=== PATIENT | male | born 1990 | race Two or more races ===

== ENCOUNTER 2024-12-16 18:58 | Inpatient (IN) | payer MEDICAID, OTHER ==
[~2024-12-16] VITALS: Ht 167.6 cm; Wt 145.0 kg
[2024-12-16 19:00] VITALS: BP 108/60; PULSE 139; RESP 20; TEMP 101.3; O2SAT 94
[2024-12-16] MEDS ORDERED: ACETAMINOPHEN 325 MG TAB PO ONE (19:15)
[2024-12-16] MEDS ORDERED: LACTATED RINGER'S 1,900 ML IV ONE (19:15)
--- NOTE | 2024-12-16 19:52 | DVH ---
EXAM: XY CHEST PORTABLE CLINICAL HISTORY: fever TECHNIQUE: Single frontal view of the chest WID: COMPARISON: None FINDINGS: Lines and tubes: None Chest: The heart size and pulmonary vasculature is within normal limits. No pleural effusion, pneumothorax, or consolidation. The osseous structures are grossly intact. IMPRESSION: 1. No acute cardiopulmonary abnormality.
[2024-12-16 19:57] LABS: Hematocrit 42.7 % (41.0-53.0); Hemoglobin 14.2 g/dL (13.5-17.5); Mean Corpuscular Hemoglobin 28.3 pg (28.0-32.0); Mean Corpuscular Volume 85.4 fL (80.0-100.0); Nucleated Red Blood Cells % 0.0 %
[2024-12-16] MEDS ORDERED: CEFEPIME 1GM/50ML 50 ML IV ONE ×2 (20:00)
[2024-12-16 20:12] LABS: INR 1.05 (0.9-1.15); Partial Thromboplastin Time 28.0 SEC (24.5-34.5); Prothrombin Time 11.1 sec (9.3-11.8)
[2024-12-16 20:15] LABS: Albumin 4.3 g/dL (3.2-4.8); Anion Gap 11 (5-15); BUN/Creatinine Ratio 10.7 (10.0-20.0); Bilirubin, Total 0.5 mg/dL (0.2-1.0); Blood Urea Nitrogen 11 mg/dL (9-23); Calcium 9.3 mg/dL (8.7-10.4); Carbon Dioxide 25 mmol/L (20-31); Potassium 4.2 mmol/L (3.5-5.1); Total Protein 8.2 g/dL (5.7-8.2)
[2024-12-16 20:17] LABS: Alanine Aminotransferase 53 U/L (7-40); Alkaline Phosphatase 121 U/L (46-116); Chloride 98 mmol/L (98-107); Glucose 292 mg/dL (74-106); Sodium 134 mmol/L (136-145)
[2024-12-16 20:21] LABS: Lactic Acid w/Reflex 2.3 mmol/L (0.4-2.0)
--- NOTE | 2024-12-16 21:17 | ED.PDOC ---
History of Present Illness HPI Comments 34 year old male presents to the ED with a chief complaint of back pain s/p fall onset today (12/16/24). Patient states he is currently living in a rehab home, has been sleeping on the floor the past few days, has been experiencing intermittent back pain. Today, he was taking out the trash, slipped, fell dayna kwards, landing on his back. He is currently experiencing back pain. For the past 2 days, he has been experiencing nausea, diarrhea, fevers, headache. Upon ED arrival temperature was 101.3 F. PMHx DM. Denies vomiting, chest pain, dizziness, numbness/tingling, dysuria, hematuria, hematemesis. No other symptoms or modifying factors present at this time. Chief Complaint: Back Pain Time Seen by MD: 20:50 Reviewed Notes: Medications, Allergies Allergies: Coded Allergies: NO KNOWN ALLERGIES (Unverified , 12/16/24) Information Source: Patient Mode of Arrival: Ambulatory Severity: Moderate Timing: Hours Duration: Since onset Prehospital treatment: None Past Medical History PAST MEDICAL HISTORY: DM Surgical History: Denies all surgeries Family History Family History: Reviewed,noncontributory to illness, No family hx of Cancer, No family hx of DM, No family hx of Heart luis alberto, No family hx of HTN, No family hx ofKidney luis alberto, No family hx of Liver luis alberto, No family hx of Lung luis alberto, No family hx of Stroke Social History Smoker: Non-Smoker Alcohol: Denies ETOH Use Drugs: Denies Drug Use Lives In: Home Constitutional: reports: fever; denies: chills, diaphoresis, fatigue, malaise, sweats, weakness, others EENTM: denies: blurred vision, double vision, ear bleeding, ear discharge, ear drainage, ear pain, ear ringing, eye pain, eye redness, hearing loss, mouth pain, mouth swelling, nasal discharge, nose bleeding, nose congestion, nose pain, photophobia, tearing, throat pain, throat swelling, voice changes, others Respiratory: reports: cough; denies: hemoptysis, orthopnea, SOB at rest, shortness of breath, SOB with excertion, stridor, wheezing, others Cardiovascular: denies: chest pain, dizzy spells, diaphoresis, Dyspnea on exertion, edema, irregular heart beat, left arm pain, lightheadedness, palpitations, PND, syncope, others Gastrointestinal: reports: diarrhea, nausea; denies: abdomen distended, abdominal pain, blood streaked bowels, constipated, dysphagia, difficulty swallowing, hematemesis, melena, poor appetite, poor fluid intake, rectal bleeding, rectal pain, vomiting, others Genitourinary: denies: burning, dysuria, flank pain, frequency, hematuria, incontinence, penile discharge, penile sore, pain, testicle pain, testicle swelling, urgency, others Neurological: reports: headache; denies: dizziness, fainting, left sided numbness, left sided weakness, numbness, paresthesia, pre-existing deficit, right sided numbness, right sided weakness, seizure, speech problems, tingling, tremors, weakness, others Musculoskeletal: reports: back pain; denies: gout, joint pain, joint swelling, muscle pain, muscle stiffness, neck pain, others Integumetry: denies: bruises, change in color, change in hair/nails, dryness, laceration, lesions, lumps, rash, wounds, others Allergic/Immunocompromised: denies: Difficulty Healing, Frequent Infections, Hives, Itching, others Hematologic/Lymphatic: denies: anemia, blood clots, easy bleeding, easy bruising, swollen glands, others Endocrine: denies: excessive hunger, excessive sweating, excessive thirst, excessive urination, flushing, intolerance to cold, intolerance to heat, unexplained weight gain, unexplained weight loss, others Psychiatric: denies: anxiety, bipolar disorder, depression, hopeless, panic di sorder, schizophrenia, sleepless, suicidal, others All Other Systems: Reviewed and Negative Physical Exam General Appearance: Normal HEENT: Normal ENT Inspection, Pharynx Normal, TMs Normal Neck: Full Range of Motion, Non-Tender, Normal, Normal Inspection Respiratory: Chest Non-Tender, Lungs Clear, No Accessory Muscle Use, No Respiratory Distress, Normal Breath Sounds Cardiovascular: No Edema, No JVD, No Murmur, No Gallop, Normal Peripheral Pulses, Regular Rate/Rhythm Breast Exam: Deferred Gastrointestinal: No Organomegaly, Non Tender, No Pulsatile Mass, Normal Bowel Sounds, Soft Genitalia: Deferred Pelvic: Deferred Rectal: Deferred Extremities: No calf tenderness, Normal capillary refill, Normal inspection, Normal range of motion, Non-tender, No pedal edema Musculoskeletal : Apperance: Normal Neurologic: Alert, director graphics II-XII nml as Tested, No Motor Deficits, Normal Affect, Normal Mood, No Sensory Deficits Cerebellar Function: Normal Reflexes: Normal Skin: Dry, Normal Color, Warm Lymphatic: No Adenopathy Was a procedure done? Was a procedure done?: No Differential Dx Considerations may include: Viral syndrome, pneumonia, sepsis, ACS X-Ray, Labs, Meds, VS Vital Signs Date Time Temp Pulse Resp B/P (MAP) Pulse Ox O2 Delivery O2 Flow Rate FiO2 12/16/24 19:00 101.3 139 20 108/60 94 101.3 Lab Test 12/16/24 21:25 12/16/24 19:21 Range/Units Lactic Acid Level Pending 2.3 *H 0.4-2.0 mmol/L White Blood Count 19.0 H 4.4-10.8 10^3/uL Red Blood Count 5.00 4.5-5.90 10^6/uL Hemoglobin 14.2 13.5-17.5 g/dL Hematocrit 42.7 41.0-53.0 % Mean Corpuscular Volume 85.4 80.0-100.0 fL Mean Corpuscular Hemoglobin 28.3 28.0-32.0 pg Mean Corpuscular Hemoglobin Concent 33.2 32.0-36.0 g/dL Red Cell Distribution Width 16.0 H 11.8-14.3 % Platelet Count 252 140-450 10^3/uL Mean Platelet Volume 9.8 6.9-10.8 fL Neutrophils (%) (Auto) 92.2 H 37.0-80.0 % Lymphocytes (%) (Auto) 3.1 L 10.0-50.0 % Monocytes (%) (Auto) 4.5 0.0-12.0 % Eosinophils (%) (Auto) 0.1 0.0-7.0 % Basophils (%) (Auto) 0.1 0.0-2.0 % Neutrophils # (Auto) 17.6 H 1.6-8.6 10 ^3/uL Lymphocytes # (Auto) 0.6 0.4-5.4 10 ^3/uL Monocytes # (Auto) 0.9 0-1.3 10 ^3/uL Eosinophils # (Auto) 0 0-0.8 10 ^3/uL Basophils # (Auto) 0 0-0.2 10 ^3/uL Nucleated Red Blood Cells 0.0 % Prothrombin Time 11.1 9.3-11.8 sec Prothrombin Time INR 1.05 0.9-1.15 Activated Partial Thromboplast Time 28.0 24.5-34.5 SEC Sodium Level 134 L 136-145 mmol/L Potassium Level 4.2 3.5-5.1 mmol/L Chloride Level 98 98-107 mmol/L Carbon Dioxide Level 25 20-31 mmol/L Anion Gap 11 5-15 Blood Urea Nitrogen 11 9-23 mg/dL Creatinine 1.03 0.700-1.30 mg/dL Glomerular Filtration Rate Calc 97 >90 mL/min BUN/Creatinine Ratio 10.7 10.0-20.0 Serum Glucose 292 H 74-106 mg/dL Calcium Level 9.3 8.7-10.4 mg/dL Total Bilirubin 0.5 0.2-1.0 mg/dL Aspartate Amino Transferase (AST) 54 H 13-40 U/L Alanine Aminotransferase (ALT) 53 H 7-40 U/L Alkaline Phosphatase 121 H 46-116 U/L Total Protein 8.2 5.7-8.2 g/dL Albumin 4.3 3.2-4.8 g/dL [place] [id number] Ph: [phone] DIAGNOSTIC IMAGING Diagnostic Imaging Report : [id number] Signed PATIENT: NOELLE BARRON JRCCT: [id number] UNIT: [id number] : 1990 LOC: ER ROOM / BED: / AGE / SEX: 34 / M ADM STATUS: REG ER SERVICE 10 ORDERING PHYSICIAN: MEGHANN BROWN MD PROCEDURE(s): CXRP - CHEST PORTABLE REASON: fever ORDER NUMBER(s): [id number], ACCESSION NUMBER(s): [id number] EXAM: XY CHEST PORTABLE CLINICAL HISTORY: fever TECHNIQUE: Single frontal view of the chest WID: COMPARISON: None FINDINGS: Lines and tubes: None Chest: The heart size and pulmonary vasculature is within normal limits. No pleural effusion, pneumothorax, or consolidation. The osseous structures are grossly intact. IMPRESSION: 1. No acute cardiopulmonary abnormality. ATED BY: KATHLEEN SALDANA MD DICTATED DATE/TIME: 12/16/241948 SIGNED BY: KATHLEEN SALDANA MD SIGNED DATE/TIME: 12/16/241948 CC: Time of 1ST Reevaluation: 21:20 Reevaluation 1ST: Unchanged Patient Education/Counseling: Diagnosis, Treatment, Prognosis Family Education/Counseling: No Family Present SEPSIS Sepsis Screen Date sepsis recognized/suspect: Dec 16, 2024 Time Sepsis recognized/suspect: 1905 Recent Procedure: No On Antibiotic Therapy: No Respiratory Rate >20: No Heart Rate >90: Yes Temp<36 C (96.8 F) or >38.3 C: Yes SBP <90 or MAP <65 mmHG: No New Acute Mental Status Change: No Is the patient on CPAP, BIPAP,: No Physician Orders Urinalysis (12/16/24 19:11) Chest Portable (12/16/24 19:11) Accucheck (12/16/24 19:11) Blood Culture (12/16/24 19:11) Notify Md If Map <65 Or Bp<90 (12/16/24 19:11) If Map<65 Start Vasopressor (12/16/24 19:11) Sepsis Reassesment After Fluid (12/16/24 20:11) Cefepime 1gm/ 50ml (Maxipime 1gm/50ml) (12/17/24 06:00) Vital Signs Date Time Temp Pulse Resp B/P (MAP) Pulse Ox O2 Delivery O2 Flow Rate FiO2 12/16/24 19:00 101.3 139 20 108/60 94 101.3 Laboratory Tests Test 12/16/24 19:21 12/16/24 21:25 Lactic Acid Level 2.3 mmol/L (0.4-2.0) *H Pending White Blood Count 19.0 10^3/uL (4.4-10.8) H Departure 1 Departure Time of Disposition: 22:01 (Patient presents with symptoms concerning for sepsis. Patient we will empirically cover patient with antibiotics and fluids and admit patient for further workup and expert consultation) Impression: Primary Impression: Sepsis Qualified Codes: A41.9 - Sepsis, unspecified organism Additional Impression: Generalized weakness Disposition: ADMITTED INPATIENT Admit to: Med Surg Condition: Serious Critical Care Note Critical Care Time?: Yes Critical care comment: Sepsis Authorized and Performed by: Meghann Brown MD Total critical care time: Approximately 38 minutes Due to a high probability of clinically significant, life threatening deterioration, the patient required my highest level of preparedness to intervene emergently and I personally spent this critical care time directly and personally managing the patient. This critical care time included obtaining a history; examining the patient; pulse oximetry; ordering and review of studies; arranging urgent treatment with development of a management plan; evaluation of patient's response to treatment; frequent reassessment; and, discussions with other providers. This critical care time was performed to assess and manage the high probability of imminent, life-threatening deterioration that could result in multi-organ failure. It was exclusive of separately billable procedures and treating other patients and teaching time. Please see my other sections and the rest of the note for further information on patient assessment and treatment. Stability Stability form required: No I personally scribed for MEGHANN BROWN MD ([email or web address]) on 12/16/24 at 21:17. Electronically submitted by Domenica Bynum ([email or web address]). MEGHANN BROWN MD Dec 16, 2024 21:17
[2024-12-17] MEDS ORDERED: DOCUSATE SOD 100 MG CAP PO PRN
[2024-12-17] MEDS ORDERED: ONDANSETRON HCL 4 MG/2 ML VIAL IV PRN
[2024-12-17] MEDS ORDERED: ACETAMINOPHEN 325 MG TAB PO PRN
[2024-12-17] MEDS ORDERED: HYDROcodone-ACET 5/325MG TAB PO PRN
[2024-12-17] MEDS ORDERED: LACTATED RINGER'S 2,000 ML IV ONE (00:15)
[2024-12-17] MEDS ORDERED: VANCOMYCIN PER PHARMACY 0 MG IV SCH (00:15)
[2024-12-17] MEDS ORDERED: VANCOMYCIN 1GM/250ML KIT 250 ML IV SCH (00:30)
[2024-12-17] MEDS ORDERED: LACTULOSE 20Gm/30ML SOLN PO SCH (00:45)
[2024-12-17] MEDS ORDERED: CEFEPIME 1GM/50ML 50 ML IV SCH (06:00)
--- NOTE | 2024-12-17 09:41 | DVHHPRES ---
History of Present Illness Resident Creating Document: YOMI SOLIS RESIDENT History of Present Illness 34-year-old male with past medical history of type 2 diabetes mellitus, essential hypertension presented with complaints of headache, abdominal pain and constipation since 1 week. Labs showed neutrophilic leukocytosis, lactic acidosis and transaminitis. PSHx: Patient denies Family history: Hypertension in mother Social history: Admits to alcohol , Crystal and marijuana use , 3 pack-year smoking history Home medication: Jardiance, losartan Allergic history: Patient denies Review of Systems Review of Systems General: patient denies fever, fatigue, weaknes, sweating, any recent changes in appetite and weight HEENT: No headaches, visiual changes, hearing loss, tinnitus, nasal congestion a nd discharge, and sore throat. Cardiovascular: Denies chest pain, palpitations, dyspnea on exertion, orthopnea, or claudication. Respiratory: No cough, and wheezing. Gastrointestinal: Complains of constipation and abdominal pain Genitourinary: No dysuria, hematuria, discharge, frequency, urgency, nocturia, incontinence, and urinary retention. Endocrine: No heat or cold intolerance, polydipsia, polyuria, and polyphagia. Neurological: No dizziness, extremity weakness and numbness, tremors, gait disturbance, seizures, and memory impairment. Psychiatric: Denies depression, anxiety,or insomnia. Musculoskeletal: Complains of back pain Skin: No rashes, itching, skin lesion, changes in hair, nail, skin texture and breast. Hematologic/Lymphatic: Denies easy bruising, bleeding tendencies, or lymph node enlargement. Allergies: Coded Allergies: NO KNOWN ALLERGIES (Unverified , 12/16/24) Medications Current Medications Medications Dose Ordered Sig/Myke Route Start Time Stop Time Status Last Admin Dose Admin Cefepime HCl 50 ml @ 12.5 mls/hr Q8HR IV 12/17/24 06:00 Acetaminophen/ Hydrocodone Bitart 1 tab Q4HP PRN PO 12/17/24 00:00 Ondansetron HCl 4 mg Q4HP PRN IV 12/17/24 00:00 Vancomycin HCl 0 ml @ 0 mls/hr UD IV 12/17/24 00:15 Lactulose 30 ml DAILY PO 12/17/24 00:45 Exam Vital Signs Vital Signs Date Time Temp Pulse Resp B/P (MAP) Pulse Ox O2 Delivery O2 Flow Rate FiO2 12/16/24 19:00 101.3 139 20 108/60 94 101.3 Exam General Appearance: Alert, Oriented X3, Cooperative, No acute distress HEENT: Atraumatic, PERRLA, EOMI, Mucous membrane moist/pink Respiratory: Clear to auscultation, Normal air movement Cardiovascular: Regular rate, Normal S1, Normal S2, No murmurs, no chest wall tenderness Abdominal: Diffuse abdominal tenderness, tenderness in the lumbar spine Extremities: No clubbing, No cyanosis, No edema, Normal pulses, No tenderness/swelling Skin: No rashes, No breakdown, No significant lesion Neuro: Normal gait, Normal speech, Strength at 5/5 X4 ext, Normal tone, Sensation intact, Cranial nerves 3-12 NL, Reflexes 2+ Psych/Mental Status: Mental status NL, Mood NL Labs/Xrays Labs Test 12/16/24 21:25 12/16/24 19:21 Range/Units Lactic Acid Level 2.1 *H 0.4-2.0 mmol/L White Blood Count 19.0 H 4.4-10.8 10^3/uL Red Blood Count 5.00 4.5-5.90 10^6/uL Hemoglobin 14.2 13.5-17.5 g/dL Hematocrit 42.7 41.0-53.0 % Mean Corpuscular Volume 85.4 80.0-100.0 fL Mean Corpuscular Hemoglobin 28.3 28.0-32.0 pg Mean Corpuscular Hemoglobin Concent 33.2 32.0-36.0 g/dL Red Cell Distribution Width 16.0 H 11.8-14.3 % Platelet Count 252 140-450 10^3/uL Mean Platelet Volume 9.8 6.9-10.8 fL Neutrophils (%) (Auto) 92.2 H 37.0-80.0 % Lymphocytes (%) (Auto) 3.1 L 10.0-50.0 % Monocytes (%) (Auto) 4.5 0.0-12.0 % Eosinophils (%) (Auto) 0.1 0.0-7.0 % Basophils (%) (Auto) 0.1 0.0-2.0 % Neutrophils # (Auto) 17.6 H 1.6-8.6 10 ^3/uL Lymphocytes # (Auto) 0.6 0.4-5.4 10 ^3/uL Monocytes # (Auto) 0.9 0-1.3 10 ^3/uL Eosinophils # (Auto) 0 0-0.8 10 ^3/uL Basophils # (Auto) 0 0-0.2 10 ^3/uL Nucleated Red Blood Cells 0.0 % Prothrombin Time 11.1 9.3-11.8 sec Prothrombin Time INR 1.05 0.9-1.15 Activated Partial Thromboplast Time 28.0 24.5-34.5 SEC Sodium Level 134 L 136-145 mmol/L Potassium Level 4.2 3.5-5.1 mmol/L Chloride Level 98 98-107 mmol/L Carbon Dioxide Level 25 20-31 mmol/L Anion Gap 11 5-15 Blood Urea Nitrogen 11 9-23 mg/dL Creatinine 1.03 0.700-1.30 mg/dL Glomerular Filtration Rate Calc 97 >90 mL/min BUN/Creatinine Ratio 10.7 10.0-20.0 Serum Glucose 292 H 74-106 mg/dL Calcium Level 9.3 8.7-10.4 mg/dL Total Bilirubin 0.5 0.2-1.0 mg/dL Aspartate Amino Transferase (AST) 54 H 13-40 U/L Alanine Aminotransferase (ALT) 53 H 7-40 U/L Alkaline Phosphatase 121 H 46-116 U/L Total Protein 8.2 5.7-8.2 g/dL Albumin 4.3 3.2-4.8 g/dL SEPSIS Sepsis Screen Date sepsis recognized/suspect: Dec 16, 2024 Time Sepsis recognized/suspect: 1905 Recent Procedure: No On Antibiotic Therapy: No Respiratory Rate >20: No Heart Rate >90: Yes Temp<36 C (96.8 F) or >38.3 C: Yes SBP <90 or MAP <65 mmHG: No New Acute Mental Status Change: No Is the patient on CPAP, BIPAP,: No Physician Orders Chlamydia/Gc Amplification (12/17/24 04:00) Urinalysis (12/17/24 04:00) Drug Screen (12/17/24 04:25) Covid19 Antigen Lalita (12/17/24 ) Rapid Influenza A&B (12/17/24 04:25) Cooling Measure (12/17/24 ) Implement Cooling Measures (12/17/24 04:31) Cooling [place] (12/17/24 04:31) Assessment/Plan Assessment/Plan #Severe sepsis -identify source, rule out STI, UTI, respiratory and abdominal source of infection #Lactic acidosis #Mild transaminitis-avoid hepatotoxic, hepatitis panel, CMP repeat #Essential hypertension, continue home medications #Type 2 diabetes mellitus-HBA1c, continue home medications #History of polysubstance abuse-follow urine drug screen #Grade 3 obesity Barriers to discharge: Medical management in progress. Case discussed with Dr. Heck Code status: Full code. Complex patient care discussion needed total 31 minutes Plan discussed with: Patient My Orders Orders - YOMI SOLIS RESIDENT Procedure Category Date Status Time Admit ADMIT 12/16/24 Transmitted 23:54 Allergies JANEL 12/16/24 In Process 23:54 Code Status CODE 12/16/24 Transmitted 23:54 Hydrocodone-Acet PHA 12/17/24 In Process 5/325mg Tab ([place] 00:00 Ondansetron Hcl PHA 12/17/24 In Process (Zofran) 00:00 Condition: Fair JANEL 12/16/24 In Process 23:54 Urine Bacterial ANKUR 12/17/24 Logged Culture 00:06 Respiratory Culture ANKUR 12/17/24 Uncollected W/ Gs 00:06 Vancomycin Per PHA 12/17/24 In Process Pharmacy 00:15 Vancomycin Per JANEL 12/17/24 In Process Pharmacy Protoc 00:30 Lactulose Oral PHA 12/17/24 In Process 00:45 Date of Service: Dec 17, 2024 Billing Provider: CHARAN HECK MD Common Visit Codes: 87467-[id number] INP/OBS CARE (HIGH) Secondary Visit Codes: 01867-[id number] CARE PLAN 30 MINUTES YOMI SOLIS Dec 17, 2024 09:41
--- NOTE | 2024-12-17 09:49 | DVHDSRES ---
Discharge Summary Date of Admission Resident Creating Document: YOMI SOLIS RESIDENT Dec 16, 2024 at 23:54 Date of Discharge: Dec 17, 2024 Admitting Diagnosis Severe sepsis Labs/Diagnostic Data: Laboratory Results Test 12/16/24 21:25 12/16/24 19:21 Lactic Acid Level 2.1 mmol/L (0.4-2.0) White Blood Count 19.0 10^3/uL (4.4-10.8) Red Blood Count 5.00 10^6/uL (4.5-5.90) Hemoglobin 14.2 g/dL (13.5-17.5) Hematocrit 42.7 % (41.0-53.0) Mean Corpuscular Volume 85.4 fL (80.0-100.0) Mean Corpuscular Hemoglobin 28.3 pg (28.0-32.0) Mean Corpuscular Hemoglobin Concent 33.2 g/dL (32.0-36.0) Red Cell Distribution Width 16.0 % (11.8-14.3) Platelet Count 252 10^3/uL (140-450) Mean Platelet Volume 9.8 fL (6.9-10.8) Neutrophils (%) (Auto) 92.2 % (37.0-80.0) Lymphocytes (%) (Auto) 3.1 % (10.0-50.0) Monocytes (%) (Auto) 4.5 % (0.0-12.0) Eosinophils (%) (Auto) 0.1 % (0.0-7.0) Basophils (%) (Auto) 0.1 % (0.0-2.0) Neutrophils # (Auto) 17.6 10 ^3/uL (1.6-8.6) Lymphocytes # (Auto) 0.6 10 ^3/uL (0.4-5.4) Monocytes # (Auto) 0.9 10 ^3/uL (0-1.3) Eosinophils # (Auto) 0 10 ^3/uL (0-0.8) Basophils # (Auto) 0 10 ^3/uL (0-0.2) Nucleated Red Blood Cells 0.0 % Prothrombin Time 11.1 sec (9.3-11.8) Prothrombin Time INR 1.05 (0.9-1.15) Activated Partial Thromboplast Time 28.0 SEC (24.5-34.5) Sodium Level 134 mmol/L (136-145) Potassium Level 4.2 mmol/L (3.5-5.1) Chloride Level 98 mmol/L (98-107) Carbon Dioxide Level 25 mmol/L (20-31) Anion Gap 11 (5-15) Blood Urea Nitrogen 11 mg/dL (9-23) Creatinine 1.03 mg/dL (0.700-1.30) Glomerular Filtration Rate Calc 97 mL/min (>90) BUN/Creatinine Ratio 10.7 (10.0-20.0) Serum Glucose 292 mg/dL (74-106) Calcium Level 9.3 mg/dL (8.7-10.4) Total Bilirubin 0.5 mg/dL (0.2-1.0) Aspartate Amino Transferase (AST) 54 U/L (13-40) Alanine Aminotransferase (ALT) 53 U/L (7-40) Alkaline Phosphatase 121 U/L (46-116) Total Protein 8.2 g/dL (5.7-8.2) Albumin 4.3 g/dL (3.2-4.8) Other Laboratory Tests 12/16/24 19:21 Brief Hx & Hospital Course: 34-year-old male with past medical history of type 2 diabetes mellitus, essential hypertension presented with complaints of headache, abdominal pain and constipation since 1 week. Labs showed neutrophilic leukocytosis, lactic acidosis and transaminitis. Patient was diagnosed with severe sepsis. He was admitted to the hospital and initial management started in the ER. Patient eloped and was nowhere to be found. Condition at Discharge: Undetermined Final Diagnosis/Problems List #Severe sepsis -identify source, rule out STI, UTI, respiratory and abdominal source of infection #Lactic acidosis #Mild transaminitis-avoid hepatotoxic, hepatitis panel, CMP repeat #Essential hypertension, continue home medications #Type 2 diabetes mellitus-HBA1c, continue home medications #History of polysubstance abuse-follow urine drug screen #Grade 3 obesity Discharge Disposition: Eloped Discharge Statement: "Patient was advised to return to the ER or call 911 if any headaches, dizziness, shortness of breath, chest pain, abdominal pain, bleeding, fevers, or worsening of medical condition. Patient was counseled about treatment plan, medications, possible side effects, patientverbalized understanding. All questions were answered to the best of my ability. This discharge took greater then 30 minutes in planning, reviewing documentation, counseling the patient, and discussing with other team members." ASSESSMENT ASSESSMENT Assessment YOMI SOLIS RESIDENT Dec 17, 2024 09:49
[2024-12-17] MEDS ORDERED: EMPAGLIFLOZIN 10 MG TAB PO SCH (10:00)
[2024-12-17] MEDS ORDERED: LOSARTAN POTASSIUM 50 MG TAB PO SCH (10:00)
== END 2024-12-17 03:02 | disposition left against medical advice (07) | DRG 720 ==
LOC: ER 18:58 → OVERFLOW 23:54
PROVIDERS: ADMIT Nurse Practitioner Acute Care; ATTEND Student in an Organized Health Care Education/Training Program
DX: A41.9 Sepsis, unspecified organism (principal); E87.20 Acidosis, unspecified; Z68.43 Body mass index [BMI] 50.0-59.9, adult; E66.9 Obesity, unspecified; I10 Essential (primary) hypertension; E11.9 Type 2 diabetes mellitus without complications; K59.00 Constipation, unspecified; N39.0 Urinary tract infection, site not specified; R65.20 Severe sepsis without septic shock; R74.01 Elevation of levels of liver transaminase levels; F12.90 Cannabis use, unspecified, uncomplicated; Z82.49 Family history of ischemic heart disease and other diseases of the circulatory system; Z88.8 Allergy status to other drugs, medicaments and biological substances; Z86.59 Personal history of other mental and behavioral disorders; Z87.891 Personal history of nicotine dependence
CPT/HCPCS: 36415; 71045; 80053; 83605; 85025; 85610; 85730; 87040; 87077; 87186; 99291; G0378

== ENCOUNTER 2024-12-17 14:07 | Inpatient (IN) | payer MEDICAID ==
[~2024-12-17] VITALS: Ht 167.6 cm; Wt 168.7 kg
--- NOTE | 2024-12-17 18:01 | ED.PDOC ---
History of Present Illness HPI Comments 34-year-old male who presents to the ED for chief complaint of abnormal labs. Patient was admitted here yesterday after presenting with a headache, abdominal pain and constipation. He was diagnosed with sepsis, however eloped after hospital admission. Patient states he received call earlier today from [facility] staff telling him to come to the ED to be admitted for positive blood cultures. Patient had blood cultures that were positive for gram-positive cocci in chains and states he has to come back to the ED to receive IV antibiotics. Patient in the ED states he has been having abdominal pain, diarrhea, headache and low back pain. Patient also notes he fell yesterday, then noticed his left leg was red and swollen today, possibly due to an injury from the fall. Patient in the ED has noted heart rate of 122 and O2 saturation 92% on room air though has stable vitals and good temperature 99.0 F respiratory rate of 18 and blood pressure 136/75. Patient otherwise denies any other symptoms at this time. Chief Complaint: Abnormal LAB's Time Seen by MD: 18:31 Reviewed Notes: Medications, Allergies Allergies: Coded Allergies: NO KNOWN ALLERGIES (Unverified , 12/16/24) Information Source: Patient Mode of Arrival: Ambulatory Past Medical History PAST MEDICAL HISTORY: DM, HTN Surgical History: Denies all surgeries Family History Family History: Reviewed,noncontributory to illness, No family hx of Cancer, No family hx of DM, No family hx of Heart luis alberto, No family hx of HTN, No family hx ofKidney luis alberto, No family hx of Liver luis alberto, No family hx of Lung luis alberto, No family hx of Stroke Social History Smoker: Non-Smoker Alcohol: Denies ETOH Use Drugs: Denies Drug Use Lives In: Home All Other Systems: Reviewed and Negative (See HPI) Physical Exam General Appearance: Mild Distress, Obese HEENT: Other (Pupils and face symmetric. Moist mucous membranes.) Neck: Full Range of Motion, Non-Tender, Normal Inspection, Supple Respiratory: Decreased Breath Sounds, No Accessory Muscle Use, No Respiratory Distress Cardiovascular: No JVD, Regular Rate/Rhythm Breast Exam: Deferred Gastrointestinal: LLQ, RLQ, Soft, Tenderness Genitalia: Deferred Pelvic: Deferred Rectal: Deferred Extremities: Normal range of motion, No pedal edema, Other (Left leg erythema, mild edema and soft tissue tenderness.) Neurologic: Alert (Oriented x4), Normal Affect, Normal Mood, Other (Ambulatory) Cerebellar Function: NOT DONE Reflexes: NOT DONE Skin: Dry, Normal Color, Warm Lymphatic: NOT DONE Was a procedure done? Was a procedure done?: No Differential Dx Considerations may include: Sepsis, hyperglycemia, DKA, cellulitis, DVT, among X-Ray, Labs, Meds, VS Vital Signs Date Time Temp Pulse Resp B/P (MAP) Pulse Ox O2 Delivery O2 Flow Rate FiO2 12/17/24 22:06 98.4 109 16 122/89 (100) 97 98.4 12/17/24 18:31 100 18 120/68 (85) 93 12/17/24 14:17 99.0 122 18 136/75 92 99.0 Lab Test 12/17/24 18:38 Range/Units White Blood Count 16.4 H 4.4-10.8 10^3/uL Red Blood Count 4.88 4.5-5.90 10^6/uL Hemoglobin 14.0 13.5-17.5 g/dL Hematocrit 42.4 41.0-53.0 % Mean Corpuscular Volume 86.9 80.0-100.0 fL Mean Corpuscular Hemoglobin 28.6 28.0-32.0 pg Mean Corpuscular Hemoglobin Concent 33.0 32.0-36.0 g/dL Red Cell Distribution Width 16.1 H 11.8-14.3 % Platelet Count 208 140-450 10^3/uL Mean Platelet Volume 9.5 6.9-10.8 fL Neutrophils (%) (Auto) 90.9 H 37.0-80.0 % Lymphocytes (%) (Auto) 5.3 L 10.0-50.0 % Monocytes (%) (Auto) 3.6 0.0-12.0 % Eosinophils (%) (Auto) 0.0 0.0-7.0 % Basophils (%) (Auto) 0.2 0.0-2.0 % Neutrophils # (Auto) 14.9 H 1.6-8.6 10 ^3/uL Lymphocytes # (Auto) 0.9 0.4-5.4 10 ^3/uL Monocytes # (Auto) 0.6 0-1.3 10 ^3/uL Eosinophils # (Auto) 0 0-0.8 10 ^3/uL Basophils # (Auto) 0 0-0.2 10 ^3/uL Nucleated Red Blood Cells 0.0 % Prothrombin Time 12.5 H 9.3-11.8 sec Prothrombin Time INR 1.20 H 0.9-1.15 Activated Partial Thromboplast Time 30.9 24.5-34.5 SEC Sodium Level 134 L 136-145 mmol/L Potassium Level 4.0 3.5-5.1 mmol/L Chloride Level 97 L 98-107 mmol/L Carbon Dioxide Level 27 20-31 mmol/L Anion Gap 10 5-15 Blood Urea Nitrogen 15 9-23 mg/dL Creatinine 1.10 0.700-1.30 mg/dL Glomerular Filtration Rate Calc 90 >90 mL/min BUN/Creatinine Ratio 13.6 10.0-20.0 Serum Glucose 222 H 74-106 mg/dL Lactic Acid Level 1.6 0.4-2.0 mmol/L Calcium Level 8.6 L 8.7-10.4 mg/dL Total Bilirubin 0.9 0.2-1.0 mg/dL Aspartate Amino Transferase (AST) 35 13-40 U/L Alanine Aminotransferase (ALT) 43 H 7-40 U/L Alkaline Phosphatase 96 46-116 U/L Total Protein 7.4 5.7-8.2 g/dL Albumin 4.0 3.2-4.8 g/dL [place] [id number] Ph: [phone] DIAGNOSTIC IMAGING Diagnostic Imaging Report : [id number] Signed PATIENT: NOELLE BARRON JRCCT: [id number] UNIT: [id number] : 1990 LOC: ER ROOM / BED: / AGE / SEX: 34 / M ADM STATUS: REG ER SERVICE [id number] ORDERING PHYSICIAN: JIGAR ACOSTA MD PROCEDURE(s): LLDVT - LT Lower DVT REASON: edema,erythema ORDER NUMBER(s): [id number], ACCESSION NUMBER(s): [id number] Bilateral lower extremity venous duplex Clinical History: edema,erythema Comparison: None Technique: Duplex Doppler evaluation of the deep venous systems of both lower extremities from the common femoral veins to the popliteal veins including color Doppler and spectral/pulsed waveform analysis was performed. Findings: LEFT SIDE: The common femoral vein demonstrates appropriate compressibility and waveform variability. There is compressibility/patency of the great saphenous vein at the proximal thigh. The femoral vein demonstrates appropriate compressibility and waveform variability. The deep femoral vein demonstrates appropriate compressibility and waveform variability. The popliteal vein demonstrates appropriate compressibility and waveform variability. There is normal compressibility at the tibioperoneal trunk. Impression: 1. No left femoropopliteal venous thrombosis. 2. 4.5 cm lymph node in the left inguinal area. ATED BY: ZITA CURRY Jr., DO DICTATED DATE/TIME: 12/17/241937 SIGNED BY: ZITA CURRY Jr., SIGNED DATE/TIME: 12/17/241937 CC: X-Ray, Labs, Meds, VS Comment 34-year-old male with a history of hypertension and diabetes who eloped after hospital admission yesterday for sepsis, returns today for evaluation after being notified of positive blood cultures and with persistent symptoms and new onset of left leg redness and swelling. Vitals remarkable for heart rate 122, oxygen saturation 92% on room air Exam remarkable for tachycardia, lower abdominal tenderness, left leg redness and swelling Rhythm strip independently interpreted by me: Sinus tach, rate 122, no ectopy. Lower extremity ultrasound negative for DVT CBC remarkable for WBC 16.4, metabolic panel remarkable for sodium 134, chloride 97, glucose 222, lactate normal, UA pending Patient treated with the following in the ED: 2 L LR IV bolus, morphine 4 mg IV, Zofran 4 mg IV, cefepime 2 g IV On re-evaluation, pain has improved. Vitals were stable. Plan is to admit the patient for treatment of sepsis. Time of 1ST Reevaluation: 21:30 Reevaluation 1ST: Improved Patient Education/Counseling: Diagnosis, Treatment Family Education/Counseling: No Family Present SEPSIS Sepsis Screen Date sepsis recognized/suspect: Dec 17, 2024 Time Sepsis recognized/suspect: 9 Recent Procedure: No On Antibiotic Therapy: No Respiratory Rate >20: No Heart Rate >90: No Temp<36 C (96.8 F) or >38.3 C: No SBP <90 or MAP <65 mmHG: No New Acute Mental Status Change: No Is the patient on CPAP, BIPAP,: No Physician Orders Urinalysis (12/17/24 18:24) Accucheck (12/17/24 18:24) Blood Culture (12/17/24 18:24) Cefepime 1gm/50ml (Maxipime 1gm/50ml) (12/17/24 22:00) Notify Md If Map <65 Or Bp<90 (12/17/24 18:24) If Map<65 Start Vasopressor (12/17/24 18:24) Sepsis Reassesment After Fluid (12/17/24 19:24) Lt Lower Dvt (12/17/24 18:24) Admit (12/17/24 22:06) Allergies (12/17/24 22:06) Code Status (12/17/24 22:) 2 Gm Sodium Diet (12/18/24 Breakfast) Ondansetron Hcl (Zofran) (12/17/24 22:15) Docusate Sodium Capsule (Colace Capsule) (12/17/24 22:15) Complete Blood Count (12/18/24 04:00) Comprehensive Metabolic Panel (12/18/24 04:00) Condition: Serious (12/17/24 22:06) Bedrest With Bathroom Privileg (12/17/24 22:06) Morphine Sulfate Injection (12/17/24 22:15) Stat Ekg For Chest Pain (12/17/24 22:06) Notify Md Of Changes From Base (12/17/24 22:06) Flame Annealing Machine Setter For 24 Hours (12/17/24 22:06) Emergency Dysrhythmia Protocol (12/17/24 22:06) Rhythm Strips Once Every Shift (12/17/24 22:06) Vital Signs Date Time Temp Pulse Resp B/P (MAP) Pulse Ox O2 Delivery O2 Flow Rate FiO2 12/17/24 22:06 98.4 109 16 122/89 (100) 97 98.4 12/17/24 18:31 100 18 120/68 (85) 93 12/17/24 14:17 99.0 122 18 136/75 92 99.0 Laboratory Tests Test 12/17/24 18:38 Lactic Acid Level 1.6 mmol/L (0.4-2.0) White Blood Count 16.4 10^3/uL (4.4-10.8) H Reassessment Post Fluid SEPSIS FOCUS EXAM(REASSESSMENT Sepsis reassessment focused exam completed. Date: 12/17/24 Time 19:04 Departure 1 Departure Time of Disposition: 19:04 Impression: Primary Impression: Sepsis Additional Impressions: Left leg cellulitis Abdominal pain Diarrhea Disposition: 09 ADMITTED INPATIENT Admit to: Tele Condition: Guarded Critical Care Note Critical Care Time?: Yes (35 min-critical care time only) Critical care comment: Critical care time including multiple bedside re-evaluations, review of lab and imaging studies, and discussion of the case with the admitting provider. Patient is high risk for hemodynamic and/or metabolic decompensation. Stability Stability form required: No Heart Score Heart Score: Heart Score Response (Comments) Value History N/A 0 EKG N/A 0 Age N/A 0 Risk Factors N/A 0 Troponin N/A 0 Total 0 I personally scribed for JIGAR ACOSTA MD ([email or web address]) on 12/17/24 at 18:01. Electronically submitted by Melissa Pacheco ([email or web address]). I personally scribed for JIGAR ACOSTA MD (BACILIO) on 12/17/24 at 18:33. Electronically submitted by Melissa Pacheco ([email or web address]). I personally scribed for JIGAR ACOSTA MD (BACILIO) on 12/17/24 at 20:39. Electronically submitted by Melissa PAN). JIGAR ACOSTA MD Dec 17, 2024 18:01
[2024-12-17 19:01] LABS: Hematocrit 42.4 % (41.0-53.0); Hemoglobin 14.0 g/dL (13.5-17.5); Mean Corpuscular Hemoglobin 28.6 pg (28.0-32.0); Mean Corpuscular Volume 86.9 fL (80.0-100.0); Nucleated Red Blood Cells % 0.0 %
[2024-12-17 19:16] LABS: INR 1.2 (0.9-1.15); Partial Thromboplastin Time 30.9 SEC (24.5-34.5); Prothrombin Time 12.5 sec (9.3-11.8)
[2024-12-17 19:17] LABS: Albumin 4.0 g/dL (3.2-4.8); Alkaline Phosphatase 96 U/L (46-116); Anion Gap 10 (5-15); BUN/Creatinine Ratio 13.6 (10.0-20.0); Blood Urea Nitrogen 15 mg/dL (9-23); Carbon Dioxide 27 mmol/L (20-31); Potassium 4.0 mmol/L (3.5-5.1); Total Protein 7.4 g/dL (5.7-8.2)
[2024-12-17 19:18] LABS: Bilirubin, Total 0.9 mg/dL (0.2-1.0)
[2024-12-17 19:23] LABS: Alanine Aminotransferase 43 U/L (7-40); Calcium 8.6 mg/dL (8.7-10.4); Chloride 97 mmol/L (98-107); Glucose 222 mg/dL (74-106); Sodium 134 mmol/L (136-145)
--- NOTE | 2024-12-17 19:41 | DVH ---
Bilateral lower extremity venous duplex Clinical History: edema,erythema Comparison: None Technique: Duplex Doppler evaluation of the deep venous systems of both lower extremities from the common femora l veins to the popliteal veins including color Doppler and spectral/pulsed waveform analysis was perf ormed. Findings: LEFT SIDE: The common femoral vein demonstrates appropriate compressibility and waveform variability. There is compressibility/patency of the great saphenous vein at the proximal thigh. The femoral vein demonstrates appropriate compressibility and waveform variability. The deep femoral vein demonstrates appropriate compressibility and waveform variability. The popliteal vein demonstrates appropriate compressibility and waveform variability. There is normal compressibility at the tibioperoneal trunk. Impression: 1. No left femoropopliteal venous thrombosis. 2. 4.5 cm lymph node in the left inguinal area.
[2024-12-17] MEDS ORDERED: ONDANSETRON HCL 4 MG/2 ML VIAL IV PRN (22:15)
[2024-12-17] MEDS ORDERED: DOCUSATE SOD 100 MG CAP PO PRN (22:15)
[2024-12-17] MEDS: ONDANSETRON HCL 4 MG/2 ML VIAL IV ONE (22:28)
[2024-12-17] MEDS: MORPHINE SULFATE 4 MG/ML SYR/VIAL IV ONE (22:28)
[2024-12-18] VITALS (9 sets, daily range): BP systolic 102–118; BP diastolic 36–69; PULSE 95–113; RESP 18–20; TEMP 97.7–99.6; O2SAT 92–96
[2024-12-18] MEDS ORDERED: VANCOMYCIN PER PHARMACY 0 MG IV SCH (00:15)
[2024-12-18] MEDS: VANCOMYCIN 1GM/250ML KIT 250 ML IV SCH ×2 (00:30→05:58)
[2024-12-18] MEDS: CEFEPIME 1GM/50ML 50 ML IV SCH ×2 (03:25→12:13)
[2024-12-18] MEDS: LACTATED RINGER'S 1,900 ML IV ONE (03:26)
[2024-12-18 03:59] LABS: Hematocrit 42.9 % (41.0-53.0); Hemoglobin 14.2 g/dL (13.5-17.5); Mean Corpuscular Hemoglobin 28.7 pg (28.0-32.0); Mean Corpuscular Volume 86.6 fL (80.0-100.0); Nucleated Red Blood Cells % 0.0 %
[2024-12-18 04:26] LABS: Alanine Aminotransferase 36 U/L (7-40); Albumin 4.3 g/dL (3.2-4.8); Alkaline Phosphatase 101 U/L (46-116); Anion Gap 8 (5-15); BUN/Creatinine Ratio 11.9 (10.0-20.0); Bilirubin, Total 0.8 mg/dL (0.2-1.0); Blood Urea Nitrogen 12 mg/dL (9-23); Calcium 9.1 mg/dL (8.7-10.4); Carbon Dioxide 27 mmol/L (20-31); Potassium 3.6 mmol/L (3.5-5.1)
[2024-12-18 04:29] LABS: Chloride 97 mmol/L (98-107); Glucose 223 mg/dL (74-106); Sodium 132 mmol/L (136-145); Total Protein 8.3 g/dL (5.7-8.2)
[2024-12-18 04:51] LABS: COVID19 ANTIGEN SOFIA FIA NEGATIVE (NEGATIVE)
--- NOTE | 2024-12-18 05:20 | DVHHPRES ---
History of Present Illness Resident Creating Document: JARRELL FRANCE RESIDENT History of Present Illness Campbell Hussein JR is a 34-year-old male with past medical history of diabetes, hypertension who presented to the ED with chief complaint of left leg pain, abdominal pain. Patient was admitted in [facility] yesterday after presenting with a headache, abdominal pain and constipation. Patient was diagnosed with sepsis however he eloped after hospital admission. Patient today received a call from [facility] stating that his blood cultures were positive and that he had to come to the ED. Patient had blood culture positive with Gram-positive cocci in chains. Patient today complained of 2 episodes of watery diarrhea, heartburn, abdominal pain which is diffuse and dull in nature, and a mild headache. Patient also fell yesterday by tripping and today noticed that his leg was erythematous and painful, which was possibly due to the injury. On arrival patient was tachycardic and had a mild fever and hypotensive. Patient is admitted for further management. Past surgical history: Denies Family history: Noncontributory Personal history: 3 pack-year history of smoking, cholesterol and marijuana use, occasionally drinks alcohol Lives with: Family Review of Systems Constitutional: Yes: Weakness; No: Fever, Chills, Sweats, Malaise, Other Eyes: No: Pain, Vision change, Conjunctivae inflammation, Eyelid inflammation, Other, Redness ENT: No: Ear pain, Ear discharge, Nose pain, Nose discharge, Nose congestion, Mouth pain, Mouth swelling, Throat pain, Throat swelling, Other Respiratory: No: Cough, Dry, Shortness of breath, SOB with excertion, Wheezing, Hemoptysis, Pleuritic Pain, Sputum, Wheezing, Other Cardiovascular: No: Chest Pain, Palpitations, Orthopnea, Paroxysmal Noc. Dyspnea, Edema, Lt Headedness, Other Gastrointestinal: Abdominal Pain Genitourinary: No Dysuria, No Frequency, No Incontinence, No Hematuria, No Retention, No Other Musculoskeletal: leg pain; No: other, neck pain, shoulder pain, arm pain, back pain, hand pain, foot pain Skin: No: Rash, Lesions, Jaundice, Bruising, Other Neurological: No: Weakness, Numbness, Incoordination, Change in speech, Confusion, Seizures, Other Allergies: Coded Allergies: NO KNOWN ALLERGIES (Unverified , 12/16/24) Medications Current Medications Medications Dose Ordered Sig/Myke Route Start Time Stop Time Status Last Admin Dose Admin Cefepime HCl 50 ml @ 12.5 mls/hr Q8HR IV 12/17/24 22:00 12/18/24 03:25 12.5 MLS/HR Ondansetron HCl 4 mg Q4HP PRN IV 12/17/24 22:15 Docusate Sodium 100 mg BIDPRN PRN PO 12/17/24 22:15 Morphine Sulfate 2 mg Q4HPRN PRN IV 12/17/24 22:15 Vancomycin HCl 0 ml @ 0 mls/hr UD IV 12/18/24 00:15 UNV Exam Vital Signs Vital Signs Date Time Temp Pulse Resp B/P (MAP) Pulse Ox O2 Delivery O2 Flow Rate FiO2 12/18/24 04:58 98.6 99 18 112/63 (79) 94 98.6 12/18/24 03:05 Room Air* 0 21 Exam General: Patient alert and oriented in person, place and time. Patient following commands. Moderate distress HEENT: Normocephalic, atraumatic, moist mucous membranes Respiratory/pulmonary: Clear lungs bilaterally, vesicular murmurs present in almost all lung marquez, no associated crackles or wheezes. Cardiovascular: Normal heart sounds S1 and S2 with no associated murmurs Abdomen: Abdomen nondistended, mild tenderness to palpation, no palpable masses. Extremities: There is no peripheral edema present at the lower extremities. Left leg edematous with edema Peripheral Pulses: 3+ Radial (R). 3+ Radial (L). 3+ Dorsalis pedis (R). 3+ Dorsalis pedis(L) Skin: No rashes or pruritus, there is no sacral edema present at this time. Neurological: Intact cranial nerves with no focal neurologic deficits Psych/mood: Normal psych/mood Labs/Xrays Labs Test 12/18/24 03:28 12/18/24 03:23 12/17/24 18:38 Range/Units White Blood Count 13.9 H 4.4-10.8 10^3/uL Red Blood Count 4.95 4.5-5.90 10^6/uL Hemoglobin 14.2 13.5-17.5 g/dL Hematocrit 42.9 41.0-53.0 % Mean Corpuscular Volume 86.6 80.0-100.0 fL Mean Corpuscular Hemoglobin 28.7 28.0-32.0 pg Mean Corpuscular Hemoglobin Concent 33.2 32.0-36.0 g/dL Red Cell Distribution Width 16.1 H 11.8-14.3 % Platelet Count 207 140-450 10^3/uL Mean Platelet Volume 9.7 6.9-10.8 fL Neutrophils (%) (Auto) 88.3 H 37.0-80.0 % Lymphocytes (%) (Auto) 7.8 L 10.0-50.0 % Monocytes (%) (Auto) 3.5 0.0-12.0 % Eosinophils (%) (Auto) 0.1 0.0-7.0 % Basophils (%) (Auto) 0.3 0.0-2.0 % Neutrophils # (Auto) 12.2 H 1.6-8.6 10 ^3/uL Lymphocytes # (Auto) 1.1 0.4-5.4 10 ^3/uL Monocytes # (Auto) 0.5 0-1.3 10 ^3/uL Eosinophils # (Auto) 0 0-0.8 10 ^3/uL Basophils # (Auto) 0 0-0.2 10 ^3/uL Nucleated Red Blood Cells 0.0 % Sodium Level 132 L 136-145 mmol/L Potassium Level 3.6 3.5-5.1 mmol/L Chloride Level 97 L 98-107 mmol/L Carbon Dioxide Level 27 20-31 mmol/L Anion Gap 8 5-15 Blood Urea Nitrogen 12 9-23 mg/dL Creatinine 1.01 0.700-1.30 mg/dL Glomerular Filtration Rate Calc 99 >90 mL/min BUN/Creatinine Ratio 11.9 10.0-20.0 Serum Glucose 223 H 74-106 mg/dL Calcium Level 9.1 8.7-10.4 mg/dL Total Bilirubin 0.8 0.2-1.0 mg/dL Aspartate Amino Transferase (AST) 31 13-40 U/L Alanine Aminotransferase (ALT) 36 7-40 U/L Alkaline Phosphatase 101 46-116 U/L Total Protein 8.3 H 5.7-8.2 g/dL Albumin 4.3 3.2-4.8 g/dL Influenza Type A Antigen Negative Negative Influenza Type B Antigen Negative Negative SARS-CoV-2 Antigen (Rapid) Negative NEGATIVE Prothrombin Time 12.5 H 9.3-11.8 sec Prothrombin Time INR 1.20 H 0.9-1.15 Activated Partial Thromboplast Time 30.9 24.5-34.5 SEC Lactic Acid Level 1.6 0.4-2.0 mmol/L SEPSIS Sepsis Screen Date sepsis recognized/suspect: Dec 17, 2024 Time Sepsis recognized/suspect: 1418 Recent Procedure: No On Antibiotic Therapy: No Respiratory Rate >20: No Heart Rate >90: No Temp<36 C (96.8 F) or >38.3 C: No SBP <90 or MAP <65 mmHG: No New Acute Mental Status Change: No Is the patient on CPAP, BIPAP,: No Physician Orders Admit (12/17/24 22:06) Allergies (12/17/24 22:) Code Status (12/17/24:06) 2 Gm Sodium Diet (12/18/24 Breakfast) Ondansetron Hcl (Zofran) (12/17/24 22:15) Docusate Sodium Capsule (Colace Capsule) (12/17/24 22:15) Condition: Serious (12/17/24 22:06) Bedrest With Bathroom Privileg (12/17/24 22:06) Morphine Sulfate Injection (12/17/24 22:15) Stat Ekg For Chest Pain (12/17/24 22:06) Notify Of Changes From Base (12/17/24 22:06) Director Apparel For 24 Hours (12/17/24 22:06) Emergency Dysrhythmia Protocol (12/17/24 22:06) Rhythm Strips Once Every Shift (12/17/24 22:06) Drug Screen (12/18/24 00:12) Vancomycin Per Pharmacy (12/18/24 00:15) Vital Signs Date Time Temp Pulse Resp B/P (MAP) Pulse Ox O2 Delivery O2 Flow Rate FiO2 12/18/24 04:58 98.6 99 18 112/63 (79) 94 98.6 12/18/24 04:39 98.6 99 18 112/63 (79) 94 98.6 12/18/24 03:05 95 18 Room Air* 0 21 12/18/24 03:04 98.3 108 16 122/89 (100) 95 98.3 12/18/24 02:39 97.9 102 18 112/82 (92) 98 97.9 12/17/24 22:06 98.4 109 16 122/89 (100) 97 98.4 Laboratory Tests Test 12/17/24 18:38 12/18/24 03:28 Lactic Acid Level 1.6 mmol/L (0.4-2.0) White Blood Count 16.4 10^3/uL (4.4-10.8) H 13.9 10^3/uL (4.4-10.8) H Medications Medications Dose Ordered Sig/Myke Route Start Time Stop Time Status Last Admin Dose Admin Cefepime HCl 50 ml @ 12.5 mls/hr Q8HR IV 12/17/24 22:00 12/18/24 03:25 12.5 MLS/HR Lactated Ringer's 1,900 ml @ 1,900 mls/hr ONCE ONCE IV 12/17/24 18:30 12/17/24 19:29 DC 12/18/24 03:26 1,900 MLS/HR Assessment/Plan Assessment/Plan # sepsis due to left leg cellulitis - IV fluids - IV vancomycin - IV cefepime - blood culture positive for gram-positive cocci - ESR,CRP ordered - STI profile #Essential hypertension -continue home medications #Type 2 diabetes mellitus-HBA1c - continue home medications #polysubstance abuse disorder - patient counseled on cessation of alcohol, drug use, smoking 13 minutes #Grade 3 obesity BMI 51.6 -patient counseled on lifestyle modifications, exercise, diet for 13 minutes PPI prophylaxis: Protonix 40 mg DVT prophylaxis: Not indicated Goals of care addressed with the patient for more than 35 minutes: Full code status Case discussed with , patient and nurse Plan discussed with: Patient My Orders Orders - JARRELL FRANCE RESIDENT Procedure Category Date Status Time Admit ADMIT 12/17/24 Transmitted 22:06 Allergies JANEL 12/17/24 In Process 22:06 Code Status CODE 12/17/24 Transmitted 22:06 2 Gm Sodium Diet DIET 12/18/24 Transmitted Breakfast Ondansetron Hcl PHA 12/17/24 In Process (Zofran) 22:15 Docusate Sodium PHA 12/17/24 In Process Capsule (Colace 22:15 Condition: Serious JANEL 12/17/24 In Process 22:06 Bedrest With Bathroom JANEL 12/17/24 In Process Privileg 22:06 Morphine Sulfate [facility] 12/17/24 In Process Injection 22:15 Stat Ekg For Chest [facility] 12/17/24 In Process Pain 22:06 Notify Of Changes [facility] 12/17/24 In Process From Base 22:06 Director Apparel For [facility] 12/17/24 In Process 24 Hours 22:06 Emergency Dysrhythmia [facility] 12/17/24 In Process Protocol 22:06 Rhythm Strips Once [facility] 12/17/24 In Process Every Shift 22:06 Drug Screen LAB 12/18/24 Logged 00:12 Vancomycin Per [facility] 12/18/24 Pending Pharmacy 00:15 Date of Service: Dec 18, 2024 Billing Provider: JARRELL FRANCE Common Visit Codes: 00540-[id number] INP/OBS CARE (HIGH) Secondary Visit Codes: 41290-[id number] CARE PLAN 30 MINUTES JARRELL FRANCE Dec 18, 2024 05:20
[2024-12-18] MEDS ORDERED: DEXTROSE (50%) 50ML SYRG IV PRN (05:45)
[2024-12-18] MEDS: InsuLIN REG 1unit/0.01ml Soln (100units/ml) SC SCH (06:15)
[2024-12-18] MEDS: ACCU-CHEK COMFORT CURVE STRIP VI SCH (06:18)
[2024-12-18 06:23] LABS: Cholesterol 122 mg/dL (< 200)
[2024-12-18 06:26] LABS: HDL Cholesterol 34 mg/dL (40-59); Triglycerides 154 mg/dL (< 150)
[2024-12-18] MEDS: LACTATED RINGER'S 1,000 ML IV ONE (06:54)
[2024-12-18] MEDS ORDERED: ONDANSETRON HCL 4 MG/2 ML VIAL IV PRN (12:00)
--- NOTE | 2024-12-18 13:27 | DVH ---
EXAM: XY L KNEE 3V XRAY CLINICAL INDICATION: Post mechanical fall TECHNIQUE: XY L KNEE 3V XRAY Comparison: None FINDINGS/IMPRESSION: There is no evidence of acute fracture or dislocation. Moderate left knee osteoarthritis. The alignment is anatomical. There is no radiopaque foreign body.
[2024-12-18] MEDS: ACETAMINOPHEN 500 MG TAB or CAP PO PRN (13:28)
--- NOTE | 2024-12-18 13:28 | DVH ---
EXAM: XY L FOOT 3 VIEW XRAY CLINICAL INDICATION: Post mechanical fall TECHNIQUE: XY L FOOT 3 VIEW XRAY Comparison: None FINDINGS/IMPRESSION: There is no evidence of acute fracture or dislocation. The visualized joint space is well maintained. The alignment is anatomical. There is no radiopaque foreign body.
--- NOTE | 2024-12-18 17:27 | DVHPNRES ---
Progress Note Date Seen: Dec 18, 2024 Resident Creating Document: STARR MAKI RESIDENT Medical Necessity Reason Pt with a Central, PICC or Fol: No Subjective Review of Systems Campbell Hussein JR is a 34-year-old male with past medical history of diabetes, hypertension who presented to the ED with chief complaint of left leg pain, abdominal pain. Patient was admitted in [facility] yesterday after presenting with a headache, abdominal pain and constipation. Patient was diagnosed with sepsis however he eloped after hospital admission. Patient today received a call from [facility] stating that his blood cultures were positive and that he had to come to the ED. Patient had blood culture positive with Gram-positive cocci in chains. Patient today complained of 2 episodes of watery diarrhea, heartburn, abdominal pain which is diffuse and dull in nature, and a mild headache. Patient also fell yesterday by tripping and today noticed that his leg was erythematous and painful, which was possibly due to the injury. On arrival patient was tachycardic and had a mild fever and hypotensive. Patient is admitted for further management. Past surgical history: Denies Family history: Noncontributory Personal history: 3 pack-year history of smoking, cholesterol and marijuana use, occasionally drinks alcohol Lives with: Family Allergies: Jardiance Code status: Full code The patient was seen and examined at bedside. Overnight events were reviewed. The patient reports of mild left lower leg pain and swelling. He complains of shortness of breaths and was on nasal cannula oxygen. He denies home oxygen use and he is not aware of obstructive sleep apnea, COPD or asthma. He denies any chest pain, fever, abdominal pain or any other complaints today. Objective vital signs Vital Sign Date Time Temp Pulse Resp B/P (MAP) Pulse Ox O2 Delivery O2 Flow Rate FiO2 12/18/24 16:25 98.0 101 18 118/64 (82) 96 98.0 12/18/24 03:05 Room Air* 0 21 Total Intake and Output 12/17/24 12/17/24 12/18/24 15:00 23:00 07:00 Intake Total 250 ml Balance 250 ml medications Current Medications Medications Dose Ordered Sig/Myke Route Start Time Stop Time Status Last Admin Dose Admin Ondansetron HCl 4 mg Q4HP PRN IV 12/17/24 22:15 Cancel Docusate Sodium 100 mg BIDPRN PRN PO 12/17/24 22:15 Morphine Sulfate 2 mg Q4HPRN PRN IV 12/17/24 22:15 Vancomycin HCl 0 ml @ 0 mls/hr UD IV 12/18/24 00:15 Cefepime HCl 50 ml @ 12.5 mls/hr Q8H IV 12/18/24 11:00 12/18/24 12:13 12.5 MLS/HR Diagnostic Test (Pha) 1 strip ACHS 12/18/24 07:00 12/18/24 12:13 1 STRIP Insulin Human Regular ACHS SC 12/18/24 07:00 12/18/24 12:15 6 UNITS Dextrose 50 ml UD PRN IV 12/18/24 05:45 Sodium Chloride 1,000 ml @ 100 mls/hr Q10H IV 12/18/24 07:45 Acetaminophen/ Hydrocodone Bitart 1 tab Q6HPRN PRN PO 12/18/24 12:00 Acetaminophen 500 mg Q8HP PRN PO 12/18/24 12:00 12/18/24 13:28 500 MG Ondansetron HCl 4 mg Q6HP PRN IV 12/18/24 12:00 Examination Pt is lying on bed General Appearance: Alert, Oriented X3, Cooperative, Mild distress HEENT: Atraumatic, Mucous membranes moist/pink Respiratory: Clear to auscultation, Normal air movement, No added sounds Cardiovascular: Regular rate, Normal S1, Normal S2, No murmurs Abdominal/ : Active bowel sounds, Soft, no distention, no tenderness Extremities: Left lower leg edema and erythematous rashes, diffuse and no defined borders. Normal pulses, No tenderness/swelling Skin: No Significant rash, except past surgical scars Neuro: Normal speech, sensorimotor deficits none Psych/Mental Status: Mental status NL, Mood NL Nurse was there as can pusher during examination laboratory and microbiology Laboratory Tests 12/18/24 03:28 Test 12/18/24 03:28 Range/Units Serum Glucose 223 H 74-106 mg/dL Labs and/or images reviewed: Labs reviewed by me, Image(s) reviewed by me Problem List/Assessment/Plan Problem List/Assessment/Plan #Sepsis due to left leg cellulitis #Bacteriemia to Streptococcus group B #Cellulitis of left leg s/p mechanical -sepsis protocol was started, with a plan to start Levophed if MAP reduces below 65. - IV fluids: Bolus dose of lactated Ringer's and normal saline - IV vancomycin - IV cefepime - blood culture positive for gram-positive cocci on 12/16/2024 - repeat blood culture on 12/19/2024 - ESR high - STI profile sent, results pending -x-ray foot and x-ray knee reveals no acute fracture or dislocation -chest x-ray and urinalysis ordered #Essential hypertension Hold anti-hypertensive until seosis resolves #Type 2 diabetes mellitus-HBA1c - mild insulin sliding scale #Vitamin-D low Repletng with oral vitamin D3 #Thyroid TSH normal #Polysubstance abuse disorder - patient counseled on cessation of alcohol, drug use, smoking 13 minutes #Dslipidemia #Grade 3 obesity BMI 51.6 -patient counseled on lifestyle modifications, exercise, diet for 13 minutes PPI prophylaxis: Protonix 40 mg DVT prophylaxis: Not indicated Case discussed with Dr. Faust, Full code status Plan discussed with: Patient, Other My Orders My Orders Orders - STARR MAKI Procedure Category Date Status Time L Foot 3 View Xray XY 12/18/24 Resulted 11:54 L Knee 3v Xray XY 12/18/24 Resulted 11:54 STARR MAKI RESIDENT Dec 18, 2024 17:27
[2024-12-18] MEDS: SODIUM CHLORIDE 0.9% 1,000 ML IV SCH (17:45)
[2024-12-18] MEDS: HYDROcodone-ACET 5/325MG TAB PO PRN (17:46)
[2024-12-18] MEDS: CHOLECALCIFEROL (VITD3) 1,000UNIT=25mCg TAB PO ONE (17:51)
[2024-12-19] VITALS (8 sets, daily range): BP systolic 111–124; BP diastolic 65–89; PULSE 90–112; RESP 18–20; TEMP 97.4–98.7; O2SAT 92–97
[2024-12-19] MEDS: MORPHINE SULFATE INJ 2 MG/ml SYRG IV PRN (01:43)
[2024-12-19] MEDS: SODIUM CHLORIDE 0.9% 500 ML IV ONE (02:00)
[2024-12-19 05:56] LABS: Hematocrit 36.7 % (41.0-53.0); Hemoglobin 12.3 g/dL (13.5-17.5); Mean Corpuscular Hemoglobin 29.0 pg (28.0-32.0); Mean Corpuscular Volume 86.6 fL (80.0-100.0); Nucleated Red Blood Cells % 0.0 %
[2024-12-19 06:04] LABS: Chloride 101 mmol/L (98-107); Potassium 3.6 mmol/L (3.5-5.1)
[2024-12-19 06:05] LABS: Anion Gap 9 (5-15); Carbon Dioxide 25 mmol/L (20-31)
[2024-12-19 06:11] LABS: BUN/Creatinine Ratio 13.2 (10.0-20.0); Blood Urea Nitrogen 12 mg/dL (9-23)
[2024-12-19 06:22] LABS: Calcium 8.6 mg/dL (8.7-10.4); Glucose 231 mg/dL (74-106); Sodium 135 mmol/L (136-145)
[2024-12-19 06:47] LABS: Urine Amorphous Crystal FEW /hpf (None Seen); Urine Protein, UAD 1+ (Negative)
[2024-12-19 06:50] LABS: Amphetamine Screen, Urine Neg (NEGATIVE); Barbiturate Scree,Urine Neg (NEGATIVE); Benzodiazephine Screen, Urine Neg (NEGATIVE); Cannabinoid Screen, Urine Neg (NEGATIVE); Cocaine Screen, Urine Neg (NEGATIVE); Opiate Scree,Urine Pos (NEGATIVE); Phencyclidine Screen, Urine Neg (NEGATIVE)
[2024-12-19] MEDS ORDERED: SODIUM CHLORIDE 0.9% 1,000 ML IV STA (06:59)
[2024-12-19] MEDS ORDERED: SODIUM CHLORIDE 0.9% 2,000 ML IV ONE (07:00)
[2024-12-19] MEDS: SODIUM CHLORIDE 0.9% 1,000 ML IV SCH (07:15)
--- NOTE | 2024-12-19 09:20 | DVH ---
XY CHEST TWO VIEWS ROUTINE CLINICAL HISTORY: Sepsis COMPARISON: CT CT CHEST/AB/PL W CON- IV ONLY on DOS: 12/19/24, XY CHEST PORTABLE on DOS: 12/16/24 TECHNIQUE: Frontal and lateral view of the chest was obtained FINDINGS: Lines and Tubes: None Lungs: No focal consolidation. Pleura: No effusion. No pneumothorax. Cardiomediastinal contours: Unremarkable Bones: No acute osseous abnormality. IMPRESSION: No acute cardiopulmonary disease.
[2024-12-19] MEDS: CHOLECALCIFEROL (VITD3) 1,000UNIT=25mCg TAB PO SCH (10:00)
[2024-12-19] MEDS ORDERED: IOHEXOL 300 MG/ML 100ML BOTTLE IJ ONE (10:02)
--- NOTE | 2024-12-19 11:19 | DVH ---
CLINICAL HISTORY: sepsis TECHNIQUE: CT of the chest, abdomen, and pelvis was performed with IV contrast. Coronal and sagittal reformatted images were performed for better depression of the anatomy. This exam was performed acco rding to our departmental dose optimization program. Up-to-date CT equipment and radiation dose reduc tion techniques are utilized as appropriate. CTDI 9 DLP 474.5 COMPARISON: XY CHEST TWO VIEWS ROUTINE on DOS: 12/19/24, XY CHEST PORTABLE on DOS: 12/16/24 FINDINGS: CHEST: The thoracic aorta is normal in course and caliber. There are no significant atherosclerotic calcific ations. The heart is normal in size. No pericardial effusion is seen. No enlarged mediastinal, hilar, or axillary lymph node is present. The central airways are patent. There is no bronchiectasis. There is no suspicious pulmonary nodule or area consolidation. Evaluation of the lungs is limited due to patient breathing artifact. There is no pleural effusion present. ABDOMEN/PELVIS: The spleen, pancreas, adrenal glands, right kidney, bladder, and prostate gland are unremarkable. There is diffuse hepatic steatosis. There are several calcified gallstones. There is a left renal cys t. The abdominal aorta is normal in course and caliber. There are no significant atherosclerotic calcifi cations. There is no free intraperitoneal air or fluid. There is no enlarged abdominal or pelvic lymph node. There is no bowel wall thickening or dilatation. The appendix is normal. BONES: No acute osseous abnormality is evident. IMPRESSION: No acute CT abnormality in the chest, abdomen, or pelvis. Diffuse hepatic steatosis. Cholelithiasis.
[2024-12-19] MEDS: ENOXAPARIN SOD 40 MG/0.4 ML SYRINGE SC ONE (11:30)
--- NOTE | 2024-12-19 12:00 | DVH ---
INDICATION: R/o collection, edema, free gas and structural abnormality COMPARISON: XY L KNEE 3V XRAY on DOS: 12/18/24, XY L FOOT 3 VIEW XRAY on DOS: 12/18/24, US LT LOWER DVT o n DOS: 12/17/24 TECHNIQUE: CT of the left lower extremity was performed without contrast. Volume transverse images we re obtained and reconstructed in multiple planes using bone and soft tissue algorithms. Radiation Dose Information: CT Dose: CTDI volume is 9 mGy. Dose-length product is 2633 mGy*cm FINDINGS: The alignment is normal. The joint spaces are normal. There is no fracture, dislocation or aggressive osseous lesion. There is no joint effusion. Diffuse subcutaneous soft-tissue edema and swelling. IMPRESSION: Possible cellulitis involving the left lower extremity. No acute bony abnormality. No discrete fluid collection or abscess.
[2024-12-19] MEDS: PANTOPRAZOLE 40 MG/10 ML VIAL INJ IV ONE (13:27)
--- NOTE | 2024-12-19 14:14 | DVHPNRES ---
Progress Note Date Seen: Dec 19, 2024 Resident Creating Document: STARR MAKI RESIDENT Medical Necessity Reason Pt with a Central, PICC or Fol: No Subjective Review of Systems Patient was seen and examined at bedside. Overnight events were reviewed. He he reports having increasing left lower leg swelling and pain. Also the patient was not able to produce urine, which was 150 mL since last night. Bladder scan revealed 15 mL of urine. Objective vital signs Vital Sign Date Time Temp Pulse Resp B/P (MAP) Pulse Ox O2 Delivery O2 Flow Rate FiO2 12/19/24 13:00 98.0 97 18 122/89 (100) 95 98.0 12/19/24 08:00 Room Air* 0 21 Total Intake and Output 12/18/24 12/18/24 12/19/24 15:00 23:00 07:00 Intake Total 840 ml 925 ml Balance 840 ml 925 ml medications Current Medications Medications Dose Ordered Sig/Myke Route Start Time Stop Time Status Last Admin Dose Admin Ondansetron HCl 4 mg Q4HP PRN IV 12/17/24 22:15 Cancel Docusate Sodium 100 mg BIDPRN PRN PO 12/17/24 22:15 Morphine Sulfate 2 mg Q4HPRN PRN IV 12/17/24 22:15 12/19/24 06:44 2 MG Vancomycin HCl 0 ml @ 0 mls/hr UD IV 12/18/24 00:15 Cefepime HCl 50 ml @ 12.5 mls/hr Q8H IV 12/18/24 11:00 12/19/24 11:00 12.5 MLS/HR Diagnostic Test (Pha) 1 strip ACHS 12/18/24 07:00 12/19/24 11:22 1 STRIP Insulin Human Regular ACHS SC 12/18/24 07:00 12/19/24 11:23 6 UNITS Dextrose 50 ml UD PRN IV 12/18/24 05:45 Acetaminophen/ Hydrocodone Bitart 1 tab Q6HPRN PRN PO 12/18/24 12:00 12/18/24 17:46 1 TAB Acetaminophen 500 mg Q8HP PRN PO 12/18/24 12:00 12/18/24 13:28 500 MG Ondansetron HCl 4 mg Q6HP PRN IV 12/18/24 12:00 Cholecalciferol 1,000 unit DAILY PO 12/19/24 10:00 12/19/24 10:00 1,000 UNIT Sodium Chloride 1,000 ml @ 150 mls/hr Q6H40M IV 12/19/24 07:15 12/19/24 14:06 150 MLS/HR Enoxaparin Sodium 40 mg DAILY SC 12/20/24 10:00 Pantoprazole Sodium 40 mg DAILY IV 12/20/24 10:00 Examination General Appearance: Alert, Oriented X3, Cooperative, Mild distress, morbid obesity HEENT: Atraumatic, Mucous membranes moist/pink Respiratory: Clear to auscultation, Normal air movement, No added sounds Cardiovascular: Regular rate, Normal S1, Normal S2, No murmurs Abdominal/ : Active bowel sounds, Soft, no distention, no tenderness Extremities: Left lower leg edema and erythematous rashes, diffuse and no defined borders. Normal pulses, No tenderness/swelling Skin: No significant rash, except past surgical scars Neuro: Normal speech, sensorimotor deficits none Psych/Mental Status: Mental status NL, Mood NL Nurse was there as motion picture set worker during examination laboratory and microbiology Laboratory Tests 12/19/24 04:36 Test 12/19/24 04:36 Range/Units Serum Glucose 231 H 74-106 mg/dL Microbiology Date/Time Source Procedure Growth Status 12/17/24 18:23 Blood Blood Culture - Preliminary NO GROWTH AFTER 24 HOURS OF INCUBATION. Resulted Problem List/Assessment/Plan Problem List/Assessment/Plan #Sepsis due to left leg cellulitis #Bacteriemia to Streptococcus group B #Cellulitis of left leg s/p mechanical -sepsis protocol was started, with a plan to start Levophed if MAP reduces below 65. - IV fluids: Bolus dose of lactated Ringer's and normal saline - IV vancomycin - IV cefepime - blood culture positive for gram-positive cocci on 12/16/2024 - repeat blood culture on 12/19/2024 - ESR high - STI profile sent, results pending -x-ray foot and x-ray knee reveals no acute fracture or dislocation -chest x-ray normal and urinalysis no UTI # reduced urine output secondary to dehydration IV fluid given and monitor urine intake and output #Essential hypertension Hold anti-hypertensive until sepsis resolves #Type 2 diabetes mellitus-HBA1c - mild insulin sliding scale #Vitamin-D low Repletng with oral vitamin D3 #Thyroid TSH normal #Polysubstance abuse disorder - patient counseled on cessation of alcohol, drug use, smoking 13 minutes #Dslipidemia #Grade 3 obesity BMI 51.6 -patient counseled on lifestyle modifications, exercise, diet for 13 minutes PPI prophylaxis: Protonix 40 mg DVT prophylaxis: Not indicated Case discussed with Dr. Faust, Full code status Plan discussed with: Patient, Other Plan discussed with: Patient, Other (RN) My Orders My Orders Orders - STARR MAKI RESIDENT Procedure Category Date Status Time Cholecalciferol PHA 12/19/24 In Process Tablet (Vitamin D3 10:00 Chest Two Views XY 12/18/24 Resulted Routine 17:49 Sodium Chloride 0.9% PHA 12/19/24 In Process 07:[address] 12/19/24 Resulted W/O Con 07:01 Hiv 1&2 Antibody LAB 12/19/24 Logged 07:09 Ct Chest/Ab/Pl W Con- CT 12/19/24 Resulted Iv Only 07:01 Date of Service: Dec 19, 2024 Billing Provider: MONICA FAUST MD Common Visit Codes: [id number] INP/OBS CARE(HIGH) STARR MAKI RESIDENT Dec 19, 2024 14:14 MONICA FUAST MD Dec 19, 2024 21:46
[2024-12-20] VITALS (8 sets, daily range): BP systolic 103–134; BP diastolic 66–89; PULSE 95–102; RESP 17–21; TEMP 97.9–98.4; O2SAT 92–97
[2024-12-20 07:41] LABS: Hematocrit 37.8 % (41.0-53.0); Hemoglobin 12.8 g/dL (13.5-17.5); Mean Corpuscular Hemoglobin 29.3 pg (28.0-32.0); Mean Corpuscular Volume 86.5 fL (80.0-100.0); Nucleated Red Blood Cells % 0.0 %
[2024-12-20 07:44] LABS: Calcium 8.7 mg/dL (8.7-10.4); Chloride 104 mmol/L (98-107); Potassium 4.0 mmol/L (3.5-5.1); Sodium 138 mmol/L (136-145)
[2024-12-20 07:45] LABS: Anion Gap 10 (5-15); Carbon Dioxide 24 mmol/L (20-31)
[2024-12-20 07:50] LABS: BUN/Creatinine Ratio 9.7 (10.0-20.0); Blood Urea Nitrogen 9 mg/dL (9-23)
[2024-12-20 07:51] LABS: Glucose 241 mg/dL (74-106)
[2024-12-20] MEDS: PANTOPRAZOLE 40 MG/10 ML VIAL INJ IV SCH (10:14)
[2024-12-20] MEDS: ENOXAPARIN SOD 40 MG/0.4 ML SYRINGE SC SCH (10:14)
--- NOTE | 2024-12-20 16:59 | DVH ---
XY CHEST TWO VIEWS ROUTINE CLINICAL HISTORY: sob COMPARISON: XY CHEST TWO VIEWS ROUTINE on DOS: 12/19/24, XY CHEST PORTABLE on DOS: 12/16/24 TECHNIQUE: Frontal and lateral view of the chest was obtained FINDINGS: Lines and Tubes: None Lungs: No focal consolidation. Pleura: No effusion. No pneumothorax. Cardiomediastinal contours: Unremarkable Bones: No acute osseous abnormality. IMPRESSION: No acute cardiopulmonary disease.
--- NOTE | 2024-12-20 21:06 | DVHPNRES ---
Progress Note Date Seen: Dec 20, 2024 Resident Creating Document: STARR MAKI RESIDENT Medical Necessity Reason Pt with a Central, PICC or Fol: No Subjective Review of Systems 34-year-old male admitted blood culture positive for Gram-positive cocci, left leg cellulitis was seen and examined at the bedside today. He reports having mild shortness of breath and constipation. However, he denies any chest pain, abdominal pain, nausea, vomiting or any other complaints today. Objective vital signs Vital Sign Date Time Temp Pulse Resp B/P (MAP) Pulse Ox O2 Delivery O2 Flow Rate FiO2 12/20/24 16:33 98.1 96 18 120/86 (97) 97 98.1 12/20/24 08:00 Room Air* 0 21 Total Intake and Output 12/19/24 12/19/24 12/20/24 15:00 23:00 07:00 Intake Total 50 ml 0 ml 1175 ml Balance 50 ml 0 ml 1175 ml medications Current Medications Medications Dose Ordered Sig/Myke Route Start Time Stop Time Status Last Admin Dose Admin Ondansetron HCl 4 mg Q4HP PRN IV 12/17/24 22:15 Cancel Morphine Sulfate 2 mg Q4HPRN PRN IV 12/17/24 22:15 12/20/24 05:11 2 MG Vancomycin HCl 0 ml @ 0 mls/hr UD IV 12/18/24 00:15 Cefepime HCl 50 ml @ 12.5 mls/hr Q8H IV 12/18/24 11:00 12/20/24 18:27 12.5 MLS/HR Diagnostic Test (Pha) 1 strip ACHS 12/18/24 07:00 12/20/24 17:00 1 STRIP Insulin Human Regular ACHS SC 12/18/24 07:00 12/20/24 17:00 4 UNITS Dextrose 50 ml UD PRN IV 12/18/24 05:45 Acetaminophen/ Hydrocodone Bitart 1 tab Q6HPRN PRN PO 12/18/24 12:00 12/20/24 18:27 1 TAB Acetaminophen 500 mg Q8HP PRN PO 12/18/24 12:00 12/18/24 13:28 500 MG Ondansetron HCl 4 mg Q6HP PRN IV 12/18/24 12:00 Cholecalciferol 1,000 unit DAILY PO 12/19/24 10:00 12/20/24 10:14 1,000 UNIT Sodium Chloride 1,000 ml @ 150 mls/hr Q6H40M IV 12/19/24 07:15 12/20/24 16:35 150 MLS/HR Enoxaparin Sodium 40 mg DAILY SC 12/20/24 10:00 12/20/24 10:14 40 MG Pantoprazole Sodium 40 mg DAILY IV 12/20/24 10:00 12/20/24 10:14 40 MG Docusate Sodium 100 mg TIDPRN PRN PO 12/20/24 20:45 Examination General Appearance: Alert, Oriented X3, Cooperative, Mild distress, morbid obesity HEENT: Atraumatic, Mucous membranes moist/pink Respiratory: Clear to auscultation, Normal air movement, No added sounds Cardiovascular: Regular rate, Normal S1, Normal S2, No murmurs Abdominal/ : Active bowel sounds, Soft, no distention, no tenderness Extremities: Left lower leg edema and erythematous rashes, diffuse and no defined borders. Normal pulses, No tenderness/swelling Skin: No significant rash, except past surgical scars Neuro: Normal speech, sensorimotor deficits none Psych/Mental Status: Mental status NL, Mood NL Nurse was there as or rn during examination laboratory and microbiology Laboratory Tests 12/20/24 04:38 Test 12/20/24 04:38 Range/Units Serum Glucose 241 H 74-106 mg/dL Microbiology Date/Time Source Procedure Growth Status 12/17/24 18:23 Blood Blood Culture - Preliminary NO GROWTH AFTER 72 HOURS OF INCUBATION. Resulted Problem List/Assessment/Plan Problem List/Assessment/Plan #Sepsis due to left leg cellulitis #Bacteriemia to Streptococcus agalactiae group B #Cellulitis of left leg s/p mechanical - IV fluids: Bolus dose of lactated Ringer's and normal saline - IV vancomycin - IV cefepime - blood culture positive for S agalactiae group B on 12/16/2024 - repeat blood culture on 12/17/2024 - ESR high - STI profile sent, results pending -x-ray foot and x-ray knee reveals no acute fracture or dislocation -chest x-ray normal and urinalysis no UTI #Essential hypertension Hold anti-hypertensive until sepsis resolves #Type 2 diabetes mellitus-HBA1c Mild insulin sliding scale #Vitamin-D low Repleting with oral vitamin D3 #Thyroid TSH normal #Constipation MiraLax High-fiber diet #Polysubstance abuse disorder Patient counseled on cessation of alcohol, drug use, smoking 13 minutes #Dslipidemia #Grade 3 obesity BMI 51.6 Patient counseled on lifestyle modifications, exercise, diet for 13 minutes PPI prophylaxis: Protonix 40 mg DVT prophylaxis: Enoxaparin Goals of care discussed with patient for over 18 minutes: Full code status Case discussed with Dr. Faust, patient and nurses. Plan discussed with: Patient, Other (RN) My Orders My Orders Orders - STARR MAKI RESIDENT Procedure Category Date Status Time Chest Two Views XY 12/20/24 Resulted Routine 15:59 Insert Midline ORDERS 12/20/24 Transmitted 18:40 * Lift Team Technician CONS 12/20/24 Transmitted Consult STARR MAKI RESIDENT Dec 20, 2024 21:06 HEATHER POWELL RESIDENT Dec 21, 2024 23:09
[2024-12-20] MEDS: DOCUSATE SOD 100 MG CAP PO ONE (21:10)
[2024-12-21] VITALS (8 sets, daily range): BP systolic 113–144; BP diastolic 78–86; PULSE 84–96; RESP 17–18; TEMP 97.6–98.3; O2SAT 3–97
[2024-12-21 05:43] LABS: Hematocrit 36.3 % (41.0-53.0); Hemoglobin 12.2 g/dL (13.5-17.5); Mean Corpuscular Hemoglobin 28.9 pg (28.0-32.0); Mean Corpuscular Volume 86.4 fL (80.0-100.0); Nucleated Red Blood Cells % 0.2 %
[2024-12-21 05:52] LABS: Anion Gap 7 (5-15); Carbon Dioxide 26 mmol/L (20-31); Chloride 104 mmol/L (98-107); Potassium 4.3 mmol/L (3.5-5.1); Sodium 137 mmol/L (136-145)
[2024-12-21 05:54] LABS: Calcium 8.8 mg/dL (8.7-10.4)
[2024-12-21 05:58] LABS: BUN/Creatinine Ratio 10.6 (10.0-20.0); Blood Urea Nitrogen 9 mg/dL (9-23)
[2024-12-21 06:09] LABS: Glucose 222 mg/dL (74-106)
[2024-12-21] MEDS: INSULIN LISPRO (HUMAN) 100 UNITS/ML ML SC SCH (11:30)
[2024-12-21] MEDS: INSULIN LANTUS (GLARGINE) 1 /0.01ml (100units/ml) SC SCH (20:44)
[2024-12-21] MEDS: DOCUSATE SOD 100 MG CAP PO PRN (20:45)
--- NOTE | 2024-12-21 21:10 | DVHPNRES ---
Progress Note Date Seen: Dec 21, 2024 Resident Creating Document: LYLE SIFUENTES RESIDENT Medical Necessity Reason Pt with a Central, PICC or Fol: Yes Subjective Review of Systems Campbell Hussein JR is a 34-year-old male with past medical history of diabetes, hypertension who presented to the ED with chief complaint of left leg pain, abdominal pain. Patient was admitted in [facility] yesterday after presenting with a headache, abdominal pain and constipation. Patient was diagnosed with sepsis however he eloped after hospital admission. Patient received a call from [facility] stating that his blood cultures were positive and that he had to come to the ED. Patient had blood culture positive with Gram-positive cocci in chains. Patient today complained of 2 episodes of watery diarrhea, heartburn, abdominal pain which is diffuse and dull in nature, and a mild headache. Patient also fell yesterday by tripping and today noticed that his leg was erythematous and painful, which was possibly due to the injury. On arrival patient was tachycardic and had a mild fever and hypotensive. Patient is admitted for further management. Past surgical history: Denies Family history: Noncontributory Personal history: 3 pack-year history of smoking, cholesterol and marijuana use, occasionally drinks alcohol Lives with: Family Allergies: Jardiance Code status: Full code Patient evaluated and seen in bedside today. Patient lying on bed . Midline placed today. Recuperative care placement pending. Objective vital signs Vital Sign Date Time Temp Pulse Resp B/P (MAP) Pulse Ox O2 Delivery O2 Flow Rate FiO2 12/21/24 17:00 98.3 84 18 113/83 (93) 97 98.3 12/21/24 08:00 Room Air* 0 21 Total Intake and Output 12/20/24 12/20/24 12/21/24 15:00 23:00 07:00 Intake Total 2585 ml 335 ml Output Total 650 ml Balance 2585 ml -315 ml medications Current Medications Medications Dose Ordered Sig/Myke Route Start Time Stop Time Status Last Admin Dose Admin Ondansetron HCl 4 mg Q4HP PRN IV 12/17/24 22:15 Cancel Morphine Sulfate 2 mg Q4HPRN PRN IV 12/17/24 22:15 12/21/24 02:33 2 MG Vancomycin HCl 0 ml @ 0 mls/hr UD IV 12/18/24 00:15 Cefepime HCl 50 ml @ 12.5 mls/hr Q8H IV 12/18/24 11:00 12/21/24 18:24 12.5 MLS/HR Diagnostic Test (Pha) 1 strip ACHS 12/18/24 07:00 12/21/24 20:44 1 STRIP Insulin Human Regular ACHS SC 12/18/24 07:00 12/21/24 20:43 3 UNITS Dextrose 50 ml UD PRN IV 12/18/24 05:45 Acetaminophen/ Hydrocodone Bitart 1 tab Q6HPRN PRN PO 12/18/24 12:00 12/21/24 20:46 1 TAB Acetaminophen 500 mg Q8HP PRN PO 12/18/24 12:00 12/18/24 13:28 500 MG Ondansetron HCl 4 mg Q6HP PRN IV 12/18/24 12:00 Cholecalciferol 1,000 unit DAILY PO 12/19/24 10:00 12/21/24 09:54 1,000 UNIT Sodium Chloride 1,000 ml @ 150 mls/hr Q6H40M IV 12/19/24 07:15 12/21/24 12:43 150 MLS/HR Enoxaparin Sodium 40 mg DAILY SC 12/20/24 10:00 12/21/24 09:54 40 MG Pantoprazole Sodium 40 mg DAILY IV 12/20/24 10:00 12/21/24 09:54 40 MG Docusate Sodium 100 mg TIDPRN PRN PO 12/20/24 20:45 12/21/24 20:45 100 MG Insulin Glargine 15 units HS SC 12/21/24 22:00 12/21/24 20:44 15 UNITS Insulin Human Lispro 5 units AC SC 12/21/24 11:30 12/21/24 17:00 5 UNITS Examination General Appearance: Alert, Oriented X3, Cooperative, Mild distress, morbid obesity HEENT: Atraumatic, Mucous membranes moist/pink Respiratory: Clear to auscultation, Normal air movement, No added sounds Cardiovascular: Regular rate, Normal S1, Normal S2, No murmurs Abdominal/ : Active bowel sounds, Soft, no distention, no tenderness Extremities: Left lower leg edema and erythematous rashes, diffuse and no defined borders. Normal pulses, No tenderness/swelling Skin: No significant rash, except past surgical scars Neuro: Normal speech, sensorimotor deficits none Psych/Mental Status: Mental status NL, Mood NL Nurse was there as etcher photoengraving during examination laboratory and microbiology Laboratory Tests 12/21/24 05:08 Test 12/21/24 05:08 Range/Units Serum Glucose 222 H 74-106 mg/dL Microbiology Date/Time Source Procedure Growth Status 12/17/24 18:23 Blood Blood Culture - Preliminary NO GROWTH AFTER 72 HOURS OF INCUBATION. Resulted Problem List/Assessment/Plan Problem List/Assessment/Plan #Sepsis due to left leg cellulitis #Bacteriemia to Streptococcus group B #Cellulitis of left leg s/p mechanical -Midline placed today, to continue IV antibiotic - IV vancomycin - IV cefepime - blood culture positive for gram-positive cocci on 12/16/2024 - repeat blood culture on 12/17/2024-preliminary report shows no growth - ESR high - STI profile sent, results pending -x-ray foot and x-ray knee reveals no acute fracture or dislocation -chest x-ray normal and urinalysis no UTI # Reduced urine output secondary to dehydration IV fluid given and monitor urine intake and output Serum creatinine today 0.85 #Essential hypertension Hold anti-hypertensive until sepsis resolves #Type 2 diabetes mellitus with hyperglycemia-HBA1c 11.3 Lantus 15 units bedtime Lispro 5 units before meal - mild insulin sliding scale # vitamin-D deficiency Repletng with oral vitamin D3 #Thyroid disease TSH normal #Constipation MiraLax High-fiber diet #Polysubstance abuse disorder - patient counseled on cessation of alcohol, drug use, smoking 14 minutes #Dslipidemia #Grade 3 obesity BMI 51.6 -patient counseled on lifestyle modifications, exercise, diet for 12 minutes PPI prophylaxis: Protonix 40 mg DVT prophylaxis: Not indicated Case discussed with Dr. Faust, Full code status Plan discussed with: Patient, Other My Orders My Orders Orders - LYLE SIFUENTES Procedure Category Date Status Time Insulin Lantus PHA 12/21/24 In Process (Glargine) (Lantus) 22:00 Insulin Lispro PHA 12/21/24 In Process (Human) (Humalog) 11:30 Basic Metabolic Panel LAB 12/22/24 Verified 04:00 Comprehensive LAB 12/22/24 Verified Metabolic Panel 04:00 * Alumni Relations Officer CONS 12/21/24 Verified Consult LYLE SIFUENTES RESIDENT Dec 21, 2024 21:10
[2024-12-22] VITALS (9 sets, daily range): BP systolic 113–144; BP diastolic 71–94; PULSE 82–101; RESP 17–19; TEMP 97.1–98.9; O2SAT 95–100
[2024-12-22 07:23] LABS: Alanine Aminotransferase 39 U/L (7-40); Albumin 3.6 g/dL (3.2-4.8); Alkaline Phosphatase 89 U/L (46-116); Anion Gap 8 (5-15); BUN/Creatinine Ratio 6.6 (10.0-20.0); Bilirubin, Total 0.5 mg/dL (0.2-1.0); Calcium 9.0 mg/dL (8.7-10.4); Carbon Dioxide 27 mmol/L (20-31); Chloride 104 mmol/L (98-107); Potassium 4.1 mmol/L (3.5-5.1); Sodium 139 mmol/L (136-145); Total Protein 6.9 g/dL (5.7-8.2)
[2024-12-22 07:28] LABS: Blood Urea Nitrogen 5 mg/dL (9-23); Glucose 176 mg/dL (74-106)
--- NOTE | 2024-12-22 12:49 | DVHPNRES ---
Progress Note Date Seen: Dec 22, 2024 Resident Creating Document: STARR MAKI RESIDENT Medical Necessity Reason Pt with a Central, PICC or Fol: Yes Subjective Review of Systems Campbell Hussein JR is a 34-year-old male with past medical history of diabetes, hypertension who presented to the ED with chief complaint of left leg pain, abdominal pain. Patient was admitted in [facility] yesterday after presenting with a headache, abdominal pain and constipation. Patient was diagnosed with sepsis however he eloped after hospital admission. Patient received a call from [facility] stating that his blood cultures were positive and that he had to come to the ED. Patient had blood culture positive with Gram-positive cocci in chains. Patient today complained of 2 episodes of watery diarrhea, heartburn, abdominal pain which is diffuse and dull in nature, and a mild headache. Patient also fell yesterday by tripping and today noticed that his leg was erythematous and painful, which was possibly due to the injury. On arrival patient was tachycardic and had a mild fever and hypotensive. Patient is admitted for further management. Past surgical history: Denies Family history: Noncontributory Personal history: 3 pack-year history of smoking, cholesterol and marijuana use, occasionally drinks alcohol Lives with: Family Allergies: Jardiance Code status: Full code Patient evaluated and seen in bedside today. Overnight events were reviewed. He denies any chest pain, shortness of breath, fever, abdominal pain or any other complaints. Objective vital signs Vital Sign Date Time Temp Pulse Resp B/P (MAP) Pulse Ox O2 Delivery O2 Flow Rate FiO2 12/22/24 08:37 98.6 101 19 113/71 (85) 98 98.6 12/21/24 20:00 Room Air* 0 21 Total Intake and Output 12/21/24 12/21/24 12/22/24 15:00 23:00 07:00 Intake Total 1160 ml 300 ml Balance 1160 ml 300 ml medications Current Medications Medications Dose Ordered Sig/Myke Route Start Time Stop Time Status Last Admin Dose Admin Ondansetron HCl 4 mg Q4HP PRN IV 12/17/24 22:15 Cancel Morphine Sulfate 2 mg Q4HPRN PRN IV 12/17/24 22:15 12/21/24 02:33 2 MG Cefepime HCl 50 ml @ 12.5 mls/hr Q8H IV 12/18/24 11:00 12/22/24 03:15 12.5 MLS/HR Diagnostic Test (Pha) 1 strip ACHS 12/18/24 07:00 12/22/24 12:38 1 STRIP Insulin Human Regular ACHS SC 12/18/24 07:00 12/22/24 12:37 6 UNITS Dextrose 50 ml UD PRN IV 12/18/24 05:45 Acetaminophen/ Hydrocodone Bitart 1 tab Q6HPRN PRN PO 12/18/24 12:00 12/21/24 20:46 1 TAB Acetaminophen 500 mg Q8HP PRN PO 12/18/24 12:00 12/18/24 13:28 500 MG Ondansetron HCl 4 mg Q6HP PRN IV 12/18/24 12:00 Cholecalciferol 1,000 unit DAILY PO 12/19/24 10:00 12/22/24 10:20 1,000 UNIT Sodium Chloride 1,000 ml @ 150 mls/hr Q6H40M IV 12/19/24 07:15 12/21/24 12:43 150 MLS/HR Enoxaparin Sodium 40 mg DAILY SC 12/20/24 10:00 12/22/24 10:20 40 MG Pantoprazole Sodium 40 mg DAILY IV 12/20/24 10:00 12/22/24 10:19 40 MG Docusate Sodium 100 mg TIDPRN PRN PO 12/20/24 20:45 12/21/24 20:45 100 MG Insulin Glargine 15 units HS SC 12/21/24 22:00 12/21/24 20:44 15 UNITS Insulin Human Lispro 5 units AC AR 12/21/24 11:30 12/22/24 12:38 5 UNITS Examination Pt is lying on bed General Appearance: Morbid obesity, Alert, Oriented X3, Cooperative, Mild distress HEENT: Atraumatic, Mucous membranes moist/pink Respiratory: Clear to auscultation, Normal air movement, No added sounds Cardiovascular: Regular rate, Normal S1, Normal S2, No murmurs Abdominal/ : Active bowel sounds, Soft, no distention, no tenderness Extremities: No edema, Normal pulses, left leg swelling and rash, Skin: No Significant rash, except past surgical scars Neuro: Normal speech, sensorimotor deficits none Psych/Mental Status: Mental status NL, Mood NL Nurse was there as spray mixer during examination laboratory and microbiology Laboratory Tests 12/22/24 05:52 12/21/24 05:08 Test 12/22/24 05:52 Range/Units Serum Glucose 176 H 74-106 mg/dL Microbiology Date/Time Source Procedure Growth Status 12/17/24 18:23 Blood Blood Culture - Preliminary NO GROWTH AFTER 72 HOURS OF INCUBATION. Resulted Labs and/or images reviewed: Labs reviewed by me, Image(s) reviewed by me Problem List/Assessment/Plan Problem List/Assessment/Plan #Sepsis due to left leg cellulitis #Bacteriemia to Streptococcus agalactiae group B #Cellulitis of left leg s/p mechanical - IV fluids: Bolus dose of lactated Ringer's and normal saline - IV vancomycin - IV cefepime - blood culture positive for S agalactiae group B on 12/16/2024 - repeat blood culture on 12/17/2024 - ESR high -x-ray foot and x-ray knee reveals no acute fracture or dislocation -chest x-ray normal and urinalysis no UTI #Essential hypertension -Hold anti-hypertensive until sepsis resolves #Type 2 diabetes mellitus-HBA1c -Mild insulin sliding scale #Vitamin-D low Repleting with oral vitamin D3 #Constipation -MiraLax -High-fiber diet #Polysubstance abuse disorder -Patient counseled on cessation of alcohol, drug use, smoking 13 minutes #Dslipidemia #Grade 3 obesity BMI 51.6 -Patient counseled on lifestyle modifications, exercise, diet for 13 minutes PPI prophylaxis: Protonix 40 mg DVT prophylaxis: Enoxaparin Goals of care discussed with patient for over 18 minutes: Full code status Case discussed with Dr. Faust, patient and nurses. Plan discussed with: Patient, Other (RN) My Orders My Orders Orders - STARR MAKI RESIDENT Procedure Category Date Status Time * Chair Pad Maker CONS 12/22/24 Transmitted Consult 09:23 STARR MAKI RESIDENT Dec 22, 2024 12:49 HEATHER POWELL RESIDENT Dec 25, 2024 00:19
[2024-12-23] VITALS (9 sets, daily range): BP systolic 116–147; BP diastolic 70–98; PULSE 79–101; RESP 16–20; TEMP 97.1–98.5; O2SAT 91–99
[2024-12-23] MEDS ORDERED: POLYETHYLENE GLYCOL 17 GM PWDR PO PRN (07:45)
[2024-12-23] MEDS: LACTULOSE 20Gm/30ML SOLN PO ONE (08:28)
[2024-12-23 10:16] LABS: Hematocrit 39.6 % (41.0-53.0); Hemoglobin 13.4 g/dL (13.5-17.5); Mean Corpuscular Hemoglobin 28.9 pg (28.0-32.0); Mean Corpuscular Volume 85.7 fL (80.0-100.0); Nucleated Red Blood Cells % 0.1 %
[2024-12-23] MEDS ORDERED: LACT10SO3 PO (11:53)
[2024-12-23] MEDS ORDERED: INSLISPI SC (11:53)
[2024-12-23] MEDS ORDERED: INSLANTI SC (11:53)
[2024-12-23] MEDS ORDERED: CALC-10 PO (11:53)
[2024-12-23] MEDS ORDERED: PANT40T PO (11:53)
--- NOTE | 2024-12-23 13:47 | DVHDSRES ---
Discharge Summary Date of Admission Resident Creating Document: STARR MAKI Dec 17, 2024 at 22:06 Date of Discharge: Dec 23, 2024 Labs/Diagnostic Data: Laboratory Results Test 12/23/24 12:02 12/23/24 09:24 12/22/24 05:52 12/19/24 03:28 POC Glucose 256 mg/dl (70-106) White Blood Count 7.6 10^3/uL (4.4-10.8) Red Blood Count 4.63 10^6/uL (4.5-5.90) Hemoglobin 13.4 g/dL (13.5-17.5) Hematocrit 39.6 % (41.0-53.0) Mean Corpuscular Volume 85.7 fL (80.0-100.0) Mean Corpuscular Hemoglobin 28.9 pg (28.0-32.0) Mean Corpuscular Hemoglobin Concent 33.8 g/dL (32.0-36.0) Red Cell Distribution Width 15.6 % (11.8-14.3) Platelet Count 319 10^3/uL (140-450) Mean Platelet Volume 9.2 fL (6.9-10.8) Neutrophils (%) (Auto) 72.1 % (37.0-80.0) Lymphocytes (%) (Auto) 17.5 % (10.0-50.0) Monocytes (%) (Auto) 6.5 % (0.0-12.0) Eosinophils (%) (Auto) 3.2 % (0.0-7.0) Basophils (%) (Auto) 0.7 % (0.0-2.0) Neutrophils # (Auto) 5.5 10 ^3/uL (1.6-8.6) Lymphocytes # (Auto) 1.3 10 ^3/uL (0.4-5.4) Monocytes # (Auto) 0.5 10 ^3/uL (0-1.3) Eosinophils # (Auto) 0.2 10 ^3/uL (0-0.8) Basophils # (Auto) 0.1 10 ^3/uL (0-0.2) Nucleated Red Blood Cells 0.1 % Sodium Level 139 mmol/L (136-145) Potassium Level 4.1 mmol/L (3.5-5.1) Chloride Level 104 mmol/L (98-107) Carbon Dioxide Level 27 mmol/L (20-31) Anion Gap 8 (5-15) Blood Urea Nitrogen 5 mg/dL (9-23) Creatinine 0.76 mg/dL (0.700-1.30) Glomerular Filtration Rate Calc 120 mL/min (>90) BUN/Creatinine Ratio 6.6 (10.0-20.0) Serum Glucose 176 mg/dL (74-106) Calcium Level 9.0 mg/dL (8.7-10.4) Total Bilirubin 0.5 mg/dL (0.2-1.0) Aspartate Amino Transferase (AST) 52 U/L (13-40) Alanine Aminotransferase (ALT) 39 U/L (7-40) Alkaline Phosphatase 89 U/L (46-116) Total Protein 6.9 g/dL (5.7-8.2) Albumin 3.6 g/dL (3.2-4.8) HIV (1&2) Antibody Negative (Negative) Test 12/18/24 05:57 12/18/24 03:28 12/18/24 03:23 12/17/24 18:38 Urine Color Yellow (Yellow) Urine Clarity Hazy (Clear) Urine pH 5.5 (5.0-9.0) Urine Specific [place] 1.026 (1.001-1.035) Urine Protein 1+ (Negative) Urine Ketones Trace (Negative) Urine Blood Negative /uL (Negative) Urine Nitrite Negative (Negative) Urine Bilirubin Negative (Negative) Urine Urobilinogen Normal mg/dL (Negative) Urine Leukocyte Esterase Negative /uL (Negative) Urine RBC 1 /hpf (0 - 3) Urine Microscopic WBC 4 /HPF (0-3) Urine Squamous Epithelial Cells Few /hpf (<5) Urine Amorphous Crystals Few /hpf (None Seen) Urine Bacteria Few /hpf (None Seen) Urine Glucose Trace mg/dL (Normal) Urine Opiates Screen Pos (NEGATIVE) Urine Fentanyl Screen Neg (NEGATIVE) Urine Barbiturates Screen Neg (NEGATIVE) Urine Phencyclidine Screen Neg (NEGATIVE) Urine Amphetamines Screen Neg (NEGATIVE) Urine Benzodiazepines Screen Neg (NEGATIVE) Urine Cocaine Screen Neg (NEGATIVE) Urine Cannabinoids Screen Neg (NEGATIVE) Erythrocyte Sedimentation Rate 75 mm/hr (0-20) Hemoglobin A1c 11.3 % A1C (<5.7) C-Reactive Protein High Sensitivity > 20.00 mg/dL (<1.0) Triglycerides Level 154 mg/dL (< 150) Cholesterol Level 122 mg/dL (< 200) LDL Cholesterol 63 mg/dL (< 100) HDL Cholesterol 34 mg/dL (40-59) Vitamin B12 Level 359 pg/mL (211-911) Vitamin D 25-Hydroxy 12.4 ng/mL (30.0-100) Thyroid Stimulating Hormone (TSH) 2.04 uIU/mL (0.55-4.78) Influenza Type A Antigen Negative (Negative) Influenza Type B Antigen Negative (Negative) SARS-CoV-2 Antigen (Rapid) Negative (NEGATIVE) Prothrombin Time 12.5 sec (9.3-11.8) Prothrombin Time INR 1.20 (0.9-1.15) Activated Partial Thromboplast Time 30.9 SEC (24.5-34.5) Lactic Acid Level 1.6 mmol/L (0.4-2.0) Other Laboratory Tests 12/23/24 09:24 12/22/24 05:52 Operations or Procedures CXR no acute CP abnormality lower extremity CT Possible cellulitis involving the left lower extremity. No acute bony abnormality. No discrete fluid collection or abscess. CT chest, abdomen and pelvis: No acute CT abnormality in the chest, abdomen, or pelvis. Diffuse hepatic steatosis. Cholelithiasis. Left Knee x-ray There is no evidence of acute fracture or dislocation. Moderate left knee osteoarthritis. left x-ray There is no evidence of acute fracture or dislocation. The visualized joint space is well maintained. The alignment is anatomical. There is no radiopaque foreign body. Left lower DVT: 1. No left femoropopliteal venous thrombosis. 2. 4.5 cm lymph node in the left inguinal area. Final Diagnosis/Problems List sepsis due to left leg cellulitis, improved Discharge Disposition: Fdc Discharge Instruct/Medications Diet: Consistent carbohydrate, Cardiac 2g Na,low cholest Activity: No Restrictions, As Tolerated Follow Up/Referral: follow up with PCP and DC clinic Medications: as per EMR Scheduled Cholecalciferol (Vitamin D-[address]), 1,000 UNIT PO DAILY Insulin Glargine (Lantus), 15 UNITS SC HS Insulin Lispro (Human) (Humalog), 5 UNITS SC AC Lactulose (Lactulose), 15 ML PO DAILY Pantoprazole Sodium Sesquihydr (Pantoprazole Sodium), 40 MG PO DAILY Discharge Statement: "Patient was advised to return to the ER or call 911 if any headaches, dizziness, shortness of breath, chest pain, abdominal pain, bleeding, fevers, or worsening of medical condition. Patient was counseled about treatment plan, medications, possible side effects, patientverbalized understanding. All questions were answered to the best of my ability. This discharge took greater then 30 minutes in planning, reviewing documentation, counseling the patient, and discussing with other team members." ASSESSMENT ASSESSMENT Assessment sepsis due to left leg cellulitis, improved STARR MAKI RESIDENT Dec 23, 2024 13:47
--- NOTE | 2024-12-23 20:53 | DVHPNRES ---
Progress Note Date Seen: Dec 23, 2024 Resident Creating Document: STARR MAKI RESIDENT Medical Necessity Reason Pt with a Central, PICC or Fol: Yes Subjective Review of Systems Campbell Hussein JR is a 34-year-old male with past medical history of diabetes, hypertension who presented to the ED with chief complaint of left leg pain, abdominal pain. Patient was admitted in [facility] yesterday after presenting with a headache, abdominal pain and constipation. Patient was diagnosed with sepsis however he eloped after hospital admission. Patient received a call from [facility] stating that his blood cultures were positive and that he had to come to the ED. Patient had blood culture positive with Gram-positive cocci in chains. Patient today complained of 2 episodes of watery diarrhea, heartburn, abdominal pain which is diffuse and dull in nature, and a mild headache. Patient also fell yesterday by tripping and today noticed that his leg was erythematous and painful, which was possibly due to the injury. On arrival patient was tachycardic and had a mild fever and hypotensive. Patient is admitted for further management. Past surgical history: Denies Family history: Noncontributory Personal history: 3 pack-year history of smoking, cholesterol and marijuana use, occasionally drinks alcohol Lives with: Family Allergies: Jardiance Code status: Full code Patient evaluated and seen in bedside today. Overnight events were reviewed. He denies any chest pain, shortness of breath, fever, abdominal pain or any other complaints. [facility]), but patient was refused due to history of felony warrant. Will plan discharge for tomorrow home with PO antibiotics. Objective vital signs Vital Sign Date Time Temp Pulse Resp B/P (MAP) Pulse Ox O2 Delivery O2 Flow Rate FiO2 12/23/24 16:45 97.6 92 16 134/81 (98) 94 97.6 12/23/24 08:00 Room Air* 0 21 Total Intake and Output 12/22/24 12/22/24 12/23/24 15:00 23:00 07:00 Intake Total 37.5 ml 700 ml 450 ml Balance 37.5 ml 700 ml 450 ml medications Current Medications Medications Dose Ordered Sig/Myke Route Start Time Stop Time Status Last Admin Dose Admin Ondansetron HCl 4 mg Q4HP PRN IV 12/17/24 22:15 Cancel Morphine Sulfate 2 mg Q4HPRN PRN IV 12/17/24 22:15 12/22/24 20:42 2 MG Diagnostic Test (Pha) 1 strip ACHS 12/18/24 07:00 12/23/24 18:15 1 STRIP Insulin Human Regular ACHS SC 12/18/24 07:00 12/23/24 18:15 3 UNITS Dextrose 50 ml UD PRN IV 12/18/24 05:45 Acetaminophen/ Hydrocodone Bitart 1 tab Q6HPRN PRN PO 12/18/24 12:00 12/23/24 01:09 1 TAB Acetaminophen 500 mg Q8HP PRN PO 12/18/24 12:00 12/23/24 13:00 500 MG Ondansetron HCl 4 mg Q6HP PRN IV 12/18/24 12:00 Cholecalciferol 1,000 unit DAILY PO 12/19/24 10:00 12/23/24 09:11 1,000 UNIT Enoxaparin Sodium 40 mg DAILY SC 12/20/24 10:00 12/23/24 09:12 40 MG Pantoprazole Sodium 40 mg DAILY IV 12/20/24 10:00 12/23/24 09:11 40 MG Insulin Glargine 15 units HS SC 12/21/24 22:00 12/22/24 21:25 15 UNITS Insulin Human Lispro 5 units AC SC 12/21/24 11:30 12/23/24 18:16 5 UNITS Ceftriaxone Sodium 50 ml @ 100 mls/hr DAILY@09 IV 12/23/24 09:00 12/23/24 09:11 100 MLS/HR Lactulose 15 ml DAILY PO 12/24/24 10:00 Examination Pt is lying on bed General Appearance: Morbid obesity: Alert, Oriented X3, Cooperative, Mild distress HEENT: Atraumatic, Mucous membranes moist/pink Respiratory: Clear to auscultation, Normal air movement, No added sounds Cardiovascular: Regular rate, Normal S1, Normal S2, No murmurs Abdominal/ : Active bowel sounds, Soft, no distention, no tenderness Extremities: No edema, Normal pulses, left leg redness and swelling Skin: No Significant rash, except past surgical scars Neuro: Normal speech, sensorimotor deficits none Psych/Mental Status: Mental status NL, Mood NL Nurse was there as rotogravure press operator during examination laboratory and microbiology Laboratory Tests 12/23/24 09:24 12/22/24 05:52 Test 12/22/24 05:52 Range/Units Serum Glucose 176 H 74-106 mg/dL Microbiology Date/Time Source Procedure Growth Status 12/17/24 18:23 Blood Blood Culture - Final NO GROWTH AFTER 5 DAYS OF INCUBATION. Complete Labs and/or images reviewed: Labs reviewed by me, Image(s) reviewed by me Problem List/Assessment/Plan Problem List/Assessment/Plan #Sepsis due to left leg cellulitis #Bacteriemia to Streptococcus agalactiae group B #Cellulitis of left leg s/p mechanical - IV fluids: Bolus dose of lactated Ringer's and normal saline - Currently on adjusted IV antibiotics ( Ceftriaxone, previously on vancomycin and cefepime) - blood culture positive for S agalactiae group B on 12/16/2024 - repeat blood culture on 12/17/2024 - ESR high -x-ray foot and x-ray knee reveals no acute fracture or dislocation -chest x-ray normal and urinalysis no UTI #Essential hypertension -Hold anti-hypertensive until sepsis resolves #Type 2 diabetes mellitus-HBA1c -Mild insulin sliding scale #Vitamin-D low Repleting with oral vitamin D3 #Constipation -MiraLax -High-fiber diet #Polysubstance abuse disorder -Patient counseled on cessation of alcohol, drug use, smoking 13 minutes #Dslipidemia #Grade 3 obesity BMI 51.6 -Patient counseled on lifestyle modifications, exercise, diet for 13 minutes PPI prophylaxis: Protonix 40 mg DVT prophylaxis: Enoxaparin Goals of care discussed with patient for over 18 minutes: Full code status Case discussed with Dr. Faust, patient and nurses. Plan discussed with: Patient, Other My Orders My Orders Orders - STARR MAKI RESIDENT Procedure Category Date Status Time Lactulose Oral PHA 12/24/24 In Process 10:00 Comprehensive LAB 12/24/24 Verified Metabolic Panel 04:00 Discharge DISCHARGE 12/23/24 Transmitted 11:43 Schedule For Dc JANEL 12/23/24 In Process Clinic F/U 11:50 STARR MAKI RESIDENT Dec 23, 2024 20:53 HEATHER POWELL RESIDENT Dec 25, 2024 00:23
[2024-12-24 01:00] VITALS: BP 136/85; PULSE 88; RESP 20; TEMP 98.5; O2SAT 97
[2024-12-24 05:00] VITALS: BP 127/86; PULSE 101; RESP 18; TEMP 98.5; O2SAT 96
[2024-12-24 08:00] VITALS: PULSE 98
[2024-12-24 09:00] VITALS: BP 139/79; PULSE 108; RESP 20; TEMP 98; O2SAT 99
[2024-12-24] MEDS: LACTULOSE 20Gm/30ML SOLN PO SCH (09:19)
[2024-12-24 10:33] LABS: Hematocrit 40.6 % (41.0-53.0); Hemoglobin 13.3 g/dL (13.5-17.5); Mean Corpuscular Hemoglobin 28.5 pg (28.0-32.0); Mean Corpuscular Volume 87.1 fL (80.0-100.0); Nucleated Red Blood Cells % 0.3 %
[2024-12-24 12:32] LABS: Alkaline Phosphatase 96 U/L (46-116); Anion Gap 5 (5-15); BUN/Creatinine Ratio 8.2 (10.0-20.0); Calcium 9.3 mg/dL (8.7-10.4); Carbon Dioxide 31 mmol/L (20-31); Chloride 99 mmol/L (98-107); Potassium 4.8 mmol/L (3.5-5.1); Total Protein 7.5 g/dL (5.7-8.2)
[2024-12-24 12:33] LABS: Alanine Aminotransferase 41 U/L (7-40); Albumin 4.0 g/dL (3.2-4.8); Bilirubin, Total 0.4 mg/dL (0.2-1.0); Blood Urea Nitrogen 7 mg/dL (9-23); Glucose 279 mg/dL (74-106); Sodium 135 mmol/L (136-145)
[2024-12-24 13:00] VITALS: BP 148/100; PULSE 87; RESP 20; TEMP 97.9; O2SAT 95
[2024-12-24] MEDS ORDERED: CEFD300C2 PO (15:04)
--- NOTE | 2024-12-24 20:13 | DVHDSRES ---
Discharge Summary Date of Admission Resident Creating Document: STARR MAKI Dec 17, 2024 at 22:06 Date of Discharge: Dec 24, 2024 Admitting Diagnosis Sepsis due to cellulitis Labs/Diagnostic Data: Laboratory Results Test 12/24/24 11:49 12/24/24 11:42 12/24/24 09:35 12/19/24 03:28 Sodium Level 135 mmol/L (136-145) Potassium Level 4.8 mmol/L (3.5-5.1) Chloride Level 99 mmol/L (98-107) Carbon Dioxide Level 31 mmol/L (20-31) Anion Gap 5 (5-15) Blood Urea Nitrogen 7 mg/dL (9-23) Creatinine 0.85 mg/dL (0.700-1.30) Glomerular Filtration Rate Calc 116 mL/min (>90) BUN/Creatinine Ratio 8.2 (10.0-20.0) Serum Glucose 279 mg/dL (74-106) Calcium Level 9.3 mg/dL (8.7-10.4) Total Bilirubin 0.4 mg/dL (0.2-1.0) Aspartate Amino Transferase (AST) 41 U/L (13-40) Alanine Aminotransferase (ALT) 41 U/L (7-40) Alkaline Phosphatase 96 U/L (46-116) Total Protein 7.5 g/dL (5.7-8.2) Albumin 4.0 g/dL (3.2-4.8) POC Glucose 257 mg/dl (70-106) White Blood Count 10.2 10^3/uL (4.4-10.8) Red Blood Count 4.67 10^6/uL (4.5-5.90) Hemoglobin 13.3 g/dL (13.5-17.5) Hematocrit 40.6 % (41.0-53.0) Mean Corpuscular Volume 87.1 fL (80.0-100.0) Mean Corpuscular Hemoglobin 28.5 pg (28.0-32.0) Mean Corpuscular Hemoglobin Concent 32.8 g/dL (32.0-36.0) Red Cell Distribution Width 16.1 % (11.8-14.3) Platelet Count 309 10^3/uL (140-450) Mean Platelet Volume 10.2 fL (6.9-10.8) Neutrophils (%) (Auto) 71.8 % (37.0-80.0) Lymphocytes (%) (Auto) 17.2 % (10.0-50.0) Monocytes (%) (Auto) 6.1 % (0.0-12.0) Eosinophils (%) (Auto) 3.7 % (0.0-7.0) Basophils (%) (Auto) 1.2 % (0.0-2.0) Neutrophils # (Auto) 7.3 10 ^3/uL (1.6-8.6) Lymphocytes # (Auto) 1.7 10 ^3/uL (0.4-5.4) Monocytes # (Auto) 0.6 10 ^3/uL (0-1.3) Eosinophils # (Auto) 0.4 10 ^3/uL (0-0.8) Basophils # (Auto) 0.1 10 ^3/uL (0-0.2) Nucleated Red Blood Cells 0.3 % HIV (1&2) Antibody Negative (Negative) Test 12/18/24 05:57 12/18/24 03:28 12/18/24 03:23 12/17/24 18:38 Urine Color Yellow (Yellow) Urine Clarity Hazy (Clear) Urine pH 5.5 (5.0-9.0) Urine Specific [place] 1.026 (1.001-1.035) Urine Protein 1+ (Negative) Urine Ketones Trace (Negative) Urine Blood Negative /uL (Negative) Urine Nitrite Negative (Negative) Urine Bilirubin Negative (Negative) Urine Urobilinogen Normal mg/dL (Negative) Urine Leukocyte Esterase Negative /uL (Negative) Urine RBC 1 /hpf (0 - 3) Urine Microscopic WBC 4 /HPF (0-3) Urine Squamous Epithelial Cells Few /hpf (<5) Urine Amorphous Crystals Few /hpf (None Seen) Urine Bacteria Few /hpf (None Seen) Urine Glucose Trace mg/dL (Normal) Urine Opiates Screen Pos (NEGATIVE) Urine Fentanyl Screen Neg (NEGATIVE) Urine Barbiturates Screen Neg (NEGATIVE) Urine Phencyclidine Screen Neg (NEGATIVE) Urine Amphetamines Screen Neg (NEGATIVE) Urine Benzodiazepines Screen Neg (NEGATIVE) Urine Cocaine Screen Neg (NEGATIVE) Urine Cannabinoids Screen Neg (NEGATIVE) Erythrocyte Sedimentation Rate 75 mm/hr (0-20) Hemoglobin A1c 11.3 % A1C (<5.7) C-Reactive Protein High Sensitivity > 20.00 mg/dL (<1.0) Triglycerides Level 154 mg/dL (< 150) Cholesterol Level 122 mg/dL (< 200) LDL Cholesterol 63 mg/dL (< 100) HDL Cholesterol 34 mg/dL (40-59) Vitamin B12 Level 359 pg/mL (211-911) Vitamin D 25-Hydroxy 12.4 ng/mL (30.0-100) Thyroid Stimulating Hormone (TSH) 2.04 uIU/mL (0.55-4.78) Influenza Type A Antigen Negative (Negative) Influenza Type B Antigen Negative (Negative) SARS-CoV-2 Antigen (Rapid) Negative (NEGATIVE) Prothrombin Time 12.5 sec (9.3-11.8) Prothrombin Time INR 1.20 (0.9-1.15) Activated Partial Thromboplast Time 30.9 SEC (24.5-34.5) Lactic Acid Level 1.6 mmol/L (0.4-2.0) Other Laboratory Tests 12/24/24 11:49 12/24/24 09:35 Brief Hx & Hospital Course: Campbell Hussein JR is a 34-year-old male with past medical history of diabetes, hypertension who presented to the ED with chief complaint of left leg pain, abdominal pain. Patient was admitted in [facility] yesterday after presenting with a headache, abdominal pain and constipation. Patient was diagnosed with sepsis however he eloped after hospital admission. Patient received a call from [facility] stating that his blood cultures were positive and that he had to come to the ED. Patient had blood culture positive with Gram-positive cocci in chains. On the day of admission, patient complained of 2 episodes of watery diarrhea, heartburn, abdominal pain which is diffuse and dull in nature, and a mild headache. Patient also fell the day before by tripping and noticed that his leg was erythematous and painful, which was possibly due to the injury. On arrival patient was tachycardic and had a mild fever and hypotensive. Patient is admitted for further management. Past surgical history: Denies Family history: Noncontributory Personal history: 3 pack-year history of smoking, cholesterol and marijuana use, occasionally drinks alcohol Lives with: Family Allergies: Jardiance The patient was admitted with sepsis secondary to left leg cellulitis, complicated by bacteremia due to Streptococcus group B. Sepsis protocol was initiated, including IV fluid resuscitation with bolus doses of lactated Ringer's normal saline. Empiric antibiotic therapy was started with IV vancomycin and IV cefepime. Blood cultures obtained on 12/16/2024 were positive for Gram-positive okay, and repeat cultures were drawn 12/19/2024, which was negative. ESR was elevated and STI profile was sent with results pending. Imaging including x-ray of the foot and knee showed no acute fracture or dislocation, chest x-ray was normal and urinalysis ruled out UTI. The patient experienced reduced urine output secondary to dehydration, managed with IV fluids and close monitoring of intake and output. Essential hypertension medications were held during septic episode. The patient has type 2 diabetes mellitus with mild hyperglycemia managed by insulin sliding scale. Vitamin-D deficiency was addressed with oral supplementation. Thyroid function was normal. Constipation was managed by lactulose. The patient has a history of polysubstance abuse disorder and received counseling regarding cessation of alcohol, drug use and smoking. Grade 3 obesity BMI 51.6, was addressed with lifestyle counseling focused on diet and exercise. Ppi prophylaxis and DVT prophylaxis was not indicated. Case discussed with Dr. Faust, Full code status Operations or Procedures CXR no acute CP abnormality lower extremity CT Possible cellulitis involving the left lower extremity. No acute bony abnormality. No discrete fluid collection or abscess. CT chest, abdomen and pelvis: No acute CT abnormality in the chest, abdomen, or pelvis. Diffuse hepatic steatosis. Cholelithiasis. Left Knee x-ray There is no evidence of acute fracture or dislocation. Moderate left knee osteoarthritis. left x-ray There is no evidence of acute fracture or dislocation. The visualized joint space is well maintained. The alignment is anatomical. There is no radiopaque foreign body. Left lower DVT: 1. No left femoropopliteal venous thrombosis. 2. 4.5 cm lymph node in the left inguinal area. chest x-ray on 12/20/2024: no acute cardiopulmonary disease left lower extremity CT without contrast: Possible cellulitis involving the left lower extremity. No acute bony abnormality, no discrete fluid collection or abscess. CT chest abdomen pelvis with contrast IV only: No acute CT abnormality in the chest, abdomen, or pelvis. Diffuse hepatic steatosis. Cholelithiasis. Extremity venous study: No DVT ORDERING PHYSICIAN: STARR MAKI RESIDENT PROCEDURE(s): CXR2 - CHEST TWO VIEWS ROUTINE REASON: Sepsis ORDER NUMBER(s): [id number], ACCESSION NUMBER(s): [id number] PATIENT: CAMPBELL HUSSEIN JR ACCT: [id number] UNIT: [id number] : 1990 LOC: [facility]GE / SEX: 34 / M ADM STATUS: ADM IN SERVICE 1154 ORDERING PHYSICIAN: STARR MAKI RESIDENT PROCEDURE(s): LKNE3 - L KNEE 3V XRAY REASON: Post mechanical fall ORDER NUMBER(s): [id number], ACCESSION NUMBER(s): [id number] EXAM: XY L KNEE 3V XRAY CLINICAL INDICATION: Post mechanical fall TECHNIQUE: XY L KNEE 3V XRAY Comparison: None FINDINGS/IMPRESSION: There is no evidence of acute fracture or dislocation. Moderate left knee osteoarthritis. The alignment is anatomical. There is no radiopaque foreign body. ATED BY: MANNY MARRERO MD DICTATED DATE/TIME: 12/18/24 132 SIGNED BY: MANNY MARRERO MD SIGNED DATE/TIME: 12/18/24 1325 XY CHEST TWO VIEWS ROUTINE CLINICAL HISTORY: Sepsis COMPARISON: CT CT CHEST/AB/PL W CON- IV ONLY on DOS: 12/19/24, XY CHEST PORTABLE on DOS: 12/16/24 TECHNIQUE: Frontal and lateral view of the chest was obtained FINDINGS: Lines and Tubes: None Lungs: No focal consolidation. Pleura: No effusion. No pneumothorax. Cardiomediastinal contours: Unremarkable Bones: No acute osseous abnormality. IMPRESSION: No acute cardiopulmonary disease. ENT: CAMPBELL HUSSEIN JR ACCT: [id number] UNIT: [id number] : 1990 LOC: [facility]GE / SEX: 34 / M ADM STATUS: ADM IN SERVICE 1154 ORDERING PHYSICIAN: STARR MAKI RESIDENT PROCEDURE(s): LFOOT - L FOOT 3 VIEW XRAY REASON: Post mechanical fall ORDER NUMBER(s): [id number], ACCESSION NUMBER(s): [id number] EXAM: XY L FOOT 3 VIEW XRAY CLINICAL INDICATION: Post mechanical fall TECHNIQUE: XY L FOOT 3 VIEW XRAY Comparison: None FINDINGS/IMPRESSION: There is no evidence of acute fracture or dislocation. The visualized joint space is well maintained. The alignment is anatomical. There is no radiopaque foreign body. ATED BY: MANNY MARRERO MD DICTATED DATE/TIME: 12/18/24 1325 Condition at Discharge: Stable Final Diagnosis/Problems List #Sepsis due to left leg cellulitis #Bacteriemia to Streptococcus group B #Cellulitis of left leg s/p mechanical # Reduced urine output secondary to dehydration #Essential hypertension #Type 2 diabetes mellitus-HBA1c #Vitamin-D low #Thyroid #Constipation #Polysubstance abuse disorder #Dslipidemia #Grade 3 obesity BMI 51.6 Discharge Disposition: Residential Detention Discharge Instruct/Medications Diet: Consistent carbohydrate, Cardiac 2g Na,low cholest Activity: No Restrictions, As Tolerated Follow Up/Referral: follow up with PCP and DC clinic Medications: Cefdinir Scheduled Cefdinir (Cefdinir), 1 CAP PO BID Cholecalciferol (Vitamin D-[address]), 1,000 UNIT PO DAILY Insulin Glargine (Lantus), 15 UNITS SC HS Insulin Lispro (Human) (Humalog), 5 UNITS SC AC Lactulose (Lactulose), 15 ML PO DAILY Pantoprazole Sodium Sesquihydr (Pantoprazole Sodium), 40 MG PO DAILY Discharge Statement: "Patient was advised to return to the ER or call 911 if any headaches, dizziness, shortness of breath, chest pain, abdominal pain, bleeding, fevers, or worsening of medical condition. Patient was counseled about treatment plan, medications, possible side effects, patientverbalized understanding. All questions were answered to the best of my ability. This discharge took greater then 30 minutes in planning, reviewing documentation, counseling the patient, and discussing with other team members." ASSESSMENT ASSESSMENT Assessment sepsis due to left leg cellulitis, improved GLYNN,STARR RESIDENT Dec 24, 2024 20:13
== END 2024-12-24 16:04 | disposition home or self-care (01) | DRG 720 ==
LOC: ER 14:07 → OVERFLOW 22:06 → TELE-WESTW 12-18 12:53 → WEST WING 12-24 08:55
PROVIDERS: ADMIT Student in an Organized Health Care Education/Training Program; ATTEND Student in an Organized Health Care Education/Training Program
PROC: 05HF33Z Insertion of Infusion Device into Left Cephalic Vein, Percutaneous Approach (ICD-10-PCS; principal; 2024-12-21)
PROC: B54NZZA Ultrasonography of Left Upper Extremity Veins, Guidance (ICD-10-PCS; 2024-12-21)
DX: A40.1 Sepsis due to streptococcus, group B (principal); Z68.43 Body mass index [BMI] 50.0-59.9, adult; L03.116 Cellulitis of left lower limb; I10 Essential (primary) hypertension; E78.5 Hyperlipidemia, unspecified; K59.00 Constipation, unspecified; E66.813 Obesity, class 3; F19.10 Other psychoactive substance abuse, uncomplicated; E55.9 Vitamin D deficiency, unspecified; E11.65 Type 2 diabetes mellitus with hyperglycemia; Z87.891 Personal history of nicotine dependence
CPT/HCPCS: 36415; 71046; 71260; 73562; 73630; 73700; 74177; 80048; 80053; 80061; 80307; 81001; 82306; 82607; 82962; 83036; 83605; 84443; 85025; 85610; 85652; 85730; 86141; 86703; 87040; 87426; 87804; 93971; 99291; G0378; J1815; J2470

== ENCOUNTER 2024-12-29 15:27 | Inpatient (IN) | payer MEDICAID ==
[~2024-12-29] VITALS: Ht 167.6 cm; Wt 160.3 kg
[~2024-12-29 15:27] MED LIST: CALC-10 PO; CEFD300C2 PO; INSLANTI SC; INSLISPI SC; LACT10SO3 PO; PANT40T PO
--- NOTE | 2024-12-29 16:39 | DVH ---
Technique: Real-time ultrasound imaging, with color Doppler and compression of the left common femor al vein, femoral vein, greater saphenous vein, and popliteal vein. Indication: PAIN SWELLING Comparison: US LT LOWER DVT on DOS: 12/17/24 Findings: There is normal compressibility and flow augmentation in all of the imaged deep veins. There are no f illing defects. Impression: No evidence of DVT in the left lower extremity.
--- NOTE | 2024-12-29 17:15 | ED.PDOC ---
Musculoskeletal HPI Comments Discharge diagnosis from 12/24/24 #Sepsis due to left leg cellulitis #Bacteriemia to Streptococcus group B #Cellulitis of left leg s/p mechanical # Reduced urine output secondary to dehydration #Essential hypertension #Type 2 diabetes mellitus-HBA1c #Vitamin-D low #Thyroid #Constipation #Polysubstance abuse disorder #Dslipidemia #Grade 3 obesity BMI 51.6 HPI: 34 year old male presents to the emergency department with a chief complaint of LT leg swelling onset 12/17/24. Patient was initially seen in this ED on 12/17/24, was admitted and discharged on 12/24/24, diagnosis of sepsis due to LT leg cellulitis, with prescription for antibiotics. He states he was [facility] to a [facility] that would be providing prescribed medication, has not taken any medication since 12/24/24, day he was discharged. Prior to first visit on 07/08, patient fell at [facility], is still experiencing LT wrist pain. Patient states he was placed in [facility] by his father due to methamphetamine, marihuana and ETOH abuse. He came to [facility] today to follow up with specialist, was recommended to come to ED. Patient is a poor historian. Denies shortness of breath, chest pain, dizziness, numbness/tingling, nausea, vomiting, diarrhea, headache, fever, chills. No other symptoms or modifying factors present at this time. Initial Vitals BP: 132/81 HR: 84 RR: 20 O2: 98% Temp: 98.3 F Past Medical History: DM, HTN, thyroid disease Past Surgical History: Denies Social History: Drinks ETOH. Smokes marijuana, uses methamphetamine Medications: Denies Allergies: Ertugliflozin, metformin, losartan pachaco: LLE pain swelling HPI: Poor Historian. REVIEW OF SYSTEMS: CONSTITUTIONAL: Denies acute: fever, diaphoresis, chills, HEAD: Denies acute: headache, photophobia Eyes: Denies acute: Double vision, vision loss, eye pain, eye discharge. EARS: Denies acute: tinnitus, hearing loss, ear discharge, ear pain, THROAT: Denies acute: sore throat, swelling, difficulty swallowing , pain with swallowing, change in voice. NECK: Denies acute: neck pain, neck swelling, stiff neck. HEART: Denies acute : chest pain, palpitations, LUNGS: Denies acute: SOB, wheezing, cough, hemoptysis ABDOMEN: Denies acute: abdominal pain, Nausea, Vomiting, diarrhea, melena , hematemesis, hematochezia SKIN: Denies acute: , , lesions, itchiness. EXTREMITIES: Denies acute: calf pain, numbness, tingling, weakness, Denies acute: Low back pain. Neuro: Denies acute: focal neurological deficit, motor or sensory focal neurological deficit, tremors, seizure like activity, confusion, dizziness, change in mental status, loss of bowel or bladder function, cauda equina like symptoms. : Denies acute: dysuria, hematuria, flank pain, increase in urinary frequency. PSYCH: Denies acute: hallucination, suicidal ideation, homicidal ideation. PHYSICAL EXAM: General: -----no---acute distress, awake and alert. Head: normocephalic, atraumatic. Neck: supple, trachea is midline, no swelling. Throat: Normal phonation. Eyes:, no erythema, no purulent discharge, no proptosis, no icterus. Heart: regular rate, regular rhythm, no significant murmur appreciated. Lungs: no apparent respiratory distress, Able to speak in full sentences. No wheezing, no rhonchi, no crackles. No stridors Clear to auscultation bilaterally. Abdomen: non tender to palpation, non distended, soft, no guarding, no rebound, + bowel sounds. Morbidly obese Neuro: Awake, Alert, oriented to name, self, situation, follows commands GCS=15. Speech is normal. Skin: no petechia, no purpura, no cyanosis, non-pale, not jaundice. Evaluation of the affected extremity where his complaint is: Left lower extremity has some minimal burk erythema. Some tenderness to palpation over the anterior burk. Pedal pulses palpable. Motor and sensory are present. Patient is neurovascularly intact in the affected extremity. Evaluation of the left wrist: Mild left wrist focal swelling and tenderness to palpation. Patient is neurovascularly intact in the affected extremity. Makes eye contact. moves all four extremities. Face: no apparent facial droop. Ambulating in the ED independently. Pedal pulses are palpable. ED COURSE: DISCLAIMER: This medical document was created using an electronic medical record system with voice recognition software and computerized dictation system. Although this document has been carefully reviewed, there might still be some phonetic and typographical errors. Occasional wrong-word or "sound-alike" substitutions may have occurred due to the inherent limitations of voice recognition software. These areas are purely typographical due to imperfections of the software programs and do not reflect any compromise in the patient's medical care. Please read the chart carefully and recognize, using context, where these substitutions have occurred. Chief Complaint: Lower Extremity Time Seen by MD: 17:00 Reviewed Notes: Medications, Allergies Allergies: Coded Allergies: Empagliflozin (Verified Allergy, Unknown, 12/18/24) Home Meds Active Scripts Cefdinir (Cefdinir) 300 Mg Cap, 1 CAP PO BID for 10 Days, #20 CAP Prov:HEATHER POWELL 12/24/24 Pantoprazole Sodium Sesquihydr (Pantoprazole Sodium) 40 Mg Tab, 40 MG PO DAILY for 30 Days, #30 TAB Prov:HEATHER POWELL 12/23/24 Lactulose (Lactulose) 10 Gm/15 Ml Fabby, 15 ML PO DAILY for 30 Days, #30 ML Prov:HEATHER POWELL [facility] 12/23/24 Insulin Lispro (Human) (Humalog) 100 Unit/Ml Inj, 5 UNITS SC AC for 30 Days, #10 INJ Prov:HEATEHR POWELL [facility] 12/23/24 Insulin Glargine (Lantus) 100 Unit/Ml Inj, 15 UNITS SC HS for 30 Days, #10 INJ Prov:HEATHER POWELL [facility] 12/23/24 Cholecalciferol (Vitamin D-[address]) 1,000 Unit Tab, 1000 UNIT PO DAILY for 30 Days, #30 TAB Prov:HEATHER POWELL [facility] 12/23/24 Information Source: Patient Mode of Arrival: Ambulatory Location: Left Extremity Location: Leg Timing: Weeks Prehospital treatment: None Severity: Moderate Able to Move Extremity: Yes Bear Weight: Limited Pain: Moderate Mechanism: Spontaneous Circumstances: Spontaneous Onset of Symptoms: Spontaneous Symptoms: Swelling DVT Risk Factors: NONE Associated signs and symptoms: Swelling Past Medical History PAST MEDICAL HISTORY: DM, HTN Surgical History: Denies all surgeries Family History Family History: Reviewed,noncontributory to illness, No family hx of Cancer, No family hx of DM, No family hx of Heart luis alberto, No family hx of HTN, No family hx ofKidney luis alberto, No family hx of Liver luis alberto, No family hx of Lung luis alberto, No family hx of Stroke Social History Smoker: Non-Smoker Alcohol: Heavy Drugs: Marijuana, Methamphetamine Lives In: Other Was a procedure done? Was a procedure done?: No Differential Diagnosis EXT Differential Diagnosis: Cellulitis, CHF, Deep Vein Thrombosis, Compartment Syndrome, Fracture, Sprain, Dislocation, Contusion, Strain, Septic, Neurovascular injury, Other (Leg swellingDdx include but not limited to DVT, ischemic limb, pitting edema, volume overload, CHF, cellulitis, hematoma, compartment syndrome, dependent edema, venous stasis.) X-Ray, Labs, Meds, VS Vital Signs Date Time Temp Pulse Resp B/P (MAP) Pulse Ox O2 Delivery O2 Flow Rate FiO2 12/30/24 02:01 97.5 74 17 133/89 (104) 97 97.5 12/29/24 15:46 98.3 84 20 132/81 93 98.3 Lab Test 12/29/24 17:12 Range/Units White Blood Count 7.8 4.4-10.8 10^3/uL Red Blood Count 4.64 4.5-5.90 10^6/uL Hemoglobin 13.2 L 13.5-17.5 g/dL Hematocrit 39.9 L 41.0-53.0 % Mean Corpuscular Volume 85.9 80.0-100.0 fL Mean Corpuscular Hemoglobin 28.5 28.0-32.0 pg Mean Corpuscular Hemoglobin Concent 33.2 32.0-36.0 g/dL Red Cell Distribution Width 15.6 H 11.8-14.3 % Platelet Count 305 140-450 10^3/uL Mean Platelet Volume 9.2 6.9-10.8 fL Neutrophils (%) (Auto) 73.0 37.0-80.0 % Lymphocytes (%) (Auto) 20.3 10.0-50.0 % Monocytes (%) (Auto) 3.7 0.0-12.0 % Eosinophils (%) (Auto) 2.2 0.0-7.0 % Basophils (%) (Auto) 0.8 0.0-2.0 % Neutrophils # (Auto) 5.7 1.6-8.6 10 ^3/uL Lymphocytes # (Auto) 1.6 0.4-5.4 10 ^3/uL Monocytes # (Auto) 0.3 0-1.3 10 ^3/uL Eosinophils # (Auto) 0.2 0-0.8 10 ^3/uL Basophils # (Auto) 0.1 0-0.2 10 ^3/uL Nucleated Red Blood Cells 0.0 % Erythrocyte Sedimentation Rate 39 H 0-20 mm/hr Sodium Level 137 136-145 mmol/L Potassium Level 4.1 3.5-5.1 mmol/L Chloride Level 100 98-107 mmol/L Carbon Dioxide Level 28 20-31 mmol/L Anion Gap 9 5-15 Blood Urea Nitrogen 15 9-23 mg/dL Creatinine 1.19 0.700-1.30 mg/dL Glomerular Filtration Rate Calc 82 >90 mL/min BUN/Creatinine Ratio 12.6 10.0-20.0 Serum Glucose 237 H 74-106 mg/dL Lactic Acid Level 1.6 0.4-2.0 mmol/L Calcium Level 8.9 8.7-10.4 mg/dL Total Bilirubin 0.5 0.2-1.0 mg/dL Aspartate Amino Transferase (AST) 66 H 13-40 U/L Alanine Aminotransferase (ALT) 55 H 7-40 U/L Alkaline Phosphatase 110 46-116 U/L C-Reactive Protein High Sensitivity 4.66 H <1.0 mg/dL B-Type Natriuretic Peptide 5.20 0-100 pg/mL Total Protein 7.9 5.7-8.2 g/dL Albumin 4.1 3.2-4.8 g/dL Current Medications Medications (Trade) Dose Ordered Sig/Myke Route Start Time Stop Time Status Last Admin Clindamycin Phosphate 50 ml @ 50 mls/hr ONCE ONCE IV 12/29/24 18:00 12/29/24 18:59 DC 12/29/24 22:[address] [address] Ph: [phone] DIAGNOSTIC IMAGING Diagnostic Imaging Report : [id number] Signed PATIENT: ANDERSON MARINNOELLECCT: [id number] UNIT: [id number] : 1990 LOC: ER ROOM / BED: / AGE / SEX: 34 / M ADM STATUS: REG ER SERVICE 1604 ORDERING PHYSICIAN: ERIKA HALEY DO PROCEDURE(s): LLDVT - LT Lower DVT REASON: PAIN SWELLING ORDER NUMBER(s): [id number], ACCESSION NUMBER(s): [id number] Technique: Real-time ultrasound imaging, with color Doppler and compression of the left common femoral vein, femoral vein, greater saphenous vein, and popliteal vein. Indication: PAIN SWELLING Comparison: US LT LOWER DVT on DOS: 12/17/24 Findings: There is normal compressibility and flow augmentation in all of the imaged deep veins. There are no filling defects. Impression: No evidence of DVT in the left lower extremity. ATED BY: JIMENA CHARLTON MD DICTATED DATE/TIME: 12/29/24 1640 SIGNED BY: JIMENA CHARLTON MD SIGNED DATE/TIME: 12/29/24 1640 CC: [place] [id number] Ph: [phone] DIAGNOSTIC IMAGING Diagnostic Imaging Report : [id number] Signed PATIENT: NOELLE BARRON JRCCT: [id number] UNIT: [id number] : 1990 LOC: ER ROOM / BED: / AGE / SEX: 34 / M ADM STATUS: REG ER SERVICE 1711 ORDERING PHYSICIAN: ERIKA HALEY DO PROCEDURE(s): LWRI - L WRIST 3+ VIEW XRAY REASON: pain swelling fall ORDER NUMBER(s): [id number], ACCESSION NUMBER(s): [id number] CLINICAL INDICATION: pain swelling fall TECHNIQUE: 3 radiographic views of the left wrist were obtained. Comparison: XY L FOOT 3 VIEW XRAY on DOS: 12/18/24 FINDINGS/IMPRESSION: There is no evidence of acute fracture or dislocation. The visualized joint space is well maintained. The alignment is anatomical. There is no radiopaque foreign body. ATED BY: ALEAH MCCALL DO DICTATED DATE/TIME: 12/29/24 1803 SIGNED BY: ALEAH MCCALL DO SIGNED DATE/TIME: 12/29/24 180 CC: Time of 1ST Reevaluation: 17:30 Reevaluation 1ST: Unchanged Patient Education/Counseling: Diagnosis, Treatment Family Education/Counseling: No Family Present Comments MDM: patient presented with the above HPI.--leg pain and swelling----workup was initiated. patient was found with the above mentioned diagnosis. the following medications were ordered: please refer to order lists of meds and tests obtained by myself Dr. Haley. Patient ED course and VS have been stabilized. Patient has been reassessed in the ED and remained in a stable condition. Pertinent incidental findings were discussed with the patient and/or family. Patient/family voices understanding and is agreeable with plan. Patient has been observed in the ED adequate length of time to insure improvement/stability. Escalation of care considered: Consideration of escalation to observation or admission Antibiotics initiated for suspected cellulitis. DVT was ruled out. Patient was ADMITTED to the medicine team for further evaluation and treatment of their presentation. All the reports of any imaging studies that were ordered by myself were reviewed by myself. Departure 1 Departure Time of Disposition: 17:59 Impression: Primary Impression: Left leg cellulitis Disposition: ADMITTED INPATIENT Admit to: Tele Condition: Guarded Discharged With: Self Critical Care Note Critical Care Time?: No I personally scribed for ERIKA HALEY DO ([email or web address]) on 12/29/24 at 17:15. Electronically submitted by Domenica Bynum ([email or web address]). I personally scribed for ERIKA HALEY DO ([email or web address]) on 12/29/24 at 17:15. Electronically submitted by Domenica Bynum ([email or web address]). I personally scribed for ERIKA HALEY DO ([email or web address]) on 12/29/24 at 18:20. Electronically submitted by Domenica Bynum ([email or web address]). ERIKA HALEY DO Dec 29, 2024 17:15
[2024-12-29 17:34] LABS: Hematocrit 39.9 % (41.0-53.0); Hemoglobin 13.2 g/dL (13.5-17.5); Mean Corpuscular Hemoglobin 28.5 pg (28.0-32.0); Mean Corpuscular Volume 85.9 fL (80.0-100.0); Nucleated Red Blood Cells % 0.0 %
[2024-12-29 17:54] LABS: Alanine Aminotransferase 55 U/L (7-40); Albumin 4.1 g/dL (3.2-4.8); Alkaline Phosphatase 110 U/L (46-116); Anion Gap 9 (5-15); BUN/Creatinine Ratio 12.6 (10.0-20.0); Bilirubin, Total 0.5 mg/dL (0.2-1.0); Blood Urea Nitrogen 15 mg/dL (9-23); Calcium 8.9 mg/dL (8.7-10.4); Carbon Dioxide 28 mmol/L (20-31); Chloride 100 mmol/L (98-107); Glucose 237 mg/dL (74-106); Potassium 4.1 mmol/L (3.5-5.1); Sodium 137 mmol/L (136-145); Total Protein 7.9 g/dL (5.7-8.2)
--- NOTE | 2024-12-29 18:05 | DVH ---
CLINICAL INDICATION: pain swelling fall TECHNIQUE: 3 radiographic views of the left wrist were obtained. Comparison: XY L FOOT 3 VIEW XRAY on DOS: 12/18/24 FINDINGS/IMPRESSION: There is no evidence of acute fracture or dislocation. The visualized joint space is well maintained. The alignment is anatomical. There is no radiopaque foreign body.
[2024-12-29] MEDS: CLINDAMYCIN 900MG IV 50 ML IV ONE (22:15)
[2024-12-30] MEDS ORDERED: ONDANSETRON HCL 4 MG/2 ML VIAL IV PRN (02:45)
[2024-12-30] MEDS ORDERED: DOCUSATE SOD 100 MG CAP PO PRN (02:45)
[2024-12-30 05:57] VITALS: BP 144/84; PULSE 75; RESP 20; TEMP 97.6; O2SAT 94
--- NOTE | 2024-12-30 06:15 | DVHHPRES ---
History of Present Illness Resident Creating Document: AZEB BOLAÑOS RESIDENT Reason for Visit: Left leg swelling, redness, and pain,left forearm pain History of Present Illness The patient is a 34-year-old male with known type 2 diabetes mellitus, essential hypertension, hypothyroidism, hyperlipidemia, morbid obesity (BMI 51.3), vitamin D deficiency, constipation, and polysubstance use disorder (methamphetamine, THC, alcohol), who presents from the emergency department for readmission due to recurrent left lower extremity cellulitis and bacteremia risk. He was hospitalized from December with sepsis secondary to left leg cellulitis and GBS bacteremia, treated with IV antibiotics and discharged on oral cefdinir 300 mg BID, vitamin D, and continuation of home medications. He was placed in a jail for supervision due to polysubstance use disorder. Since discharge, the patient has been noncompliant with antibiotics and all prescribed medications. He now presents with worsening erythema, swelling, and tenderness over the left anterior lower leg, specifically ABOVE the ankle joint and midway up the tibia. There is no panda drainage noted on arrival. He also reports left forearm pain localized to the lateral aspect, radiating slightly upward from the wrist joint, after a fall at the jail. He denies current fever, chills, chest pain, or shortness of breath, but reports generalized weakness. He had previously experienced decreased urine output during last admission attributed to dehydration; he denies oliguria currently, but labs are pending. Given his recent bacteremia, noncompliance, recurrent cellulitis, diabetes, and polysubstance history, he requires inpatient admission for IV antibiotics, diagnostic workup, and close monitoring. Past Medical History * Sepsis with GBS bacteremia (12/2024) recent admission. * Left lower extremity cellulitis * Essential hypertension. * Type 2 diabetes mellitus. * Hypothyroidism. * Hyperlipidemia. * Obesity, BMI 51.3 (morbid obesity, class III). * Vitamin D deficiency. * Constipation. * Polysubstance use disorder (methamphetamine, THC, ethanol) Past Surgical History * None Family History Noncontributory Past Social History * Lives in jail post-discharge. * Tobacco: history unclear, prior THC use. * Alcohol: prior ethanol abuse. * Illicit drugs: methamphetamine, marijuana. * No reliable support system, placed in jail for adherence concerns. Review of Systems Review of Systems * General: Weakness, fatigue; denies fever, chills, night sweats, weight loss. * Skin: Redness, swelling left lower leg. No rash elsewhere. * MSK: Left leg pain and swelling; left forearm pain after fall. * CV: Denies chest pain, palpitations, orthopnea. * Resp: Denies cough, SOB. * GI: denies abdominal pain, nausea/vomiting. * : Denies dysuria; urine output not clearly documented. * Neuro: Denies focal deficits; no seizures. * Psych: Reports history of polysubstance use; no SI/HI. Allergies: Coded Allergies: Empagliflozin (Verified Allergy, Unknown, 12/18/24) Medications Current Medications Medications Dose Ordered Sig/Myke Route Start Time Stop Time Status Last Admin Dose Admin Ondansetron HCl 4 mg Q4HP PRN IV 12/30/24 02:45 Docusate Sodium 100 mg BIDPRN PRN PO 12/30/24 02:45 Acetaminophen 650 mg Q6HP PRN PO 12/30/24 02:45 Exam Vital Signs Vital Signs Date Time Temp Pulse Resp B/P (MAP) Pulse Ox O2 Delivery O2 Flow Rate FiO2 12/30/24 02:01 97.5 74 17 133/89 (104) 97 97.5 Exam * General: Obese male, not in acute distress, afebrile on arrival. * Vitals: Pending full set. * Skin/Extremities: Left lower leg anterior aspect erythematous, tender, warm; above ankle joint extending midway to tibia. No fluctuance noted; borders not marked previously. * MSK: Left forearm with localized tenderness over lateral aspect radiating upward from wrist joint, no obvious deformity, ROM limited by pain. * Cardiac: Regular rate and rhythm, no murmurs. * Respiratory: Clear to auscultation bilaterally. * Abdomen: Obese, soft, nontender. * Neuro: No focal deficits. * Psych: Alert, cooperative. Labs/Xrays Labs Test 12/29/24 17:12 Range/Units White Blood Count 7.8 4.4-10.8 10^3/uL Red Blood Count 4.64 4.5-5.90 10^6/uL Hemoglobin 13.2 L 13.5-17.5 g/dL Hematocrit 39.9 L 41.0-53.0 % Mean Corpuscular Volume 85.9 80.0-100.0 fL Mean Corpuscular Hemoglobin 28.5 28.0-32.0 pg Mean Corpuscular Hemoglobin Concent 33.2 32.0-36.0 g/dL Red Cell Distribution Width 15.6 H 11.8-14.3 % Platelet Count 305 140-450 10^3/uL Mean Platelet Volume 9.2 6.9-10.8 fL Neutrophils (%) (Auto) 73.0 37.0-80.0 % Lymphocytes (%) (Auto) 20.3 10.0-50.0 % Monocytes (%) (Auto) 3.7 0.0-12.0 % Eosinophils (%) (Auto) 2.2 0.0-7.0 % Basophils (%) (Auto) 0.8 0.0-2.0 % Neutrophils # (Auto) 5.7 1.6-8.6 10 ^3/uL Lymphocytes # (Auto) 1.6 0.4-5.4 10 ^3/uL Monocytes # (Auto) 0.3 0-1.3 10 ^3/uL Eosinophils # (Auto) 0.2 0-0.8 10 ^3/uL Basophils # (Auto) 0.1 0-0.2 10 ^3/uL Nucleated Red Blood Cells 0.0 % Erythrocyte Sedimentation Rate 39 H 0-20 mm/hr Sodium Level 137 136-145 mmol/L Potassium Level 4.1 3.5-5.1 mmol/L Chloride Level 100 98-107 mmol/L Carbon Dioxide Level 28 20-31 mmol/L Anion Gap 9 5-15 Blood Urea Nitrogen 15 9-23 mg/dL Creatinine 1.19 0.700-1.30 mg/dL Glomerular Filtration Rate Calc 82 >90 mL/min BUN/Creatinine Ratio 12.6 10.0-20.0 Serum Glucose 237 H 74-106 mg/dL Lactic Acid Level 1.6 0.4-2.0 mmol/L Calcium Level 8.9 8.7-10.4 mg/dL Total Bilirubin 0.5 0.2-1.0 mg/dL Aspartate Amino Transferase (AST) 66 H 13-40 U/L Alanine Aminotransferase (ALT) 55 H 7-40 U/L Alkaline Phosphatase 110 46-116 U/L C-Reactive Protein High Sensitivity 4.66 H <1.0 mg/dL B-Type Natriuretic Peptide 5.20 0-100 pg/mL Total Protein 7.9 5.7-8.2 g/dL Albumin 4.1 3.2-4.8 g/dL SEPSIS Sepsis Screen Date sepsis recognized/suspect: Dec 29, 2024 Time Sepsis recognized/suspect: 1545 Recent Procedure: No On Antibiotic Therapy: No Respiratory Rate >20: No Heart Rate >90: No Temp<36 C (96.8 F) or >38.3 C: No SBP <90 or MAP <65 mmHG: No New Acute Mental Status Change: No Is the patient on CPAP, BIPAP,: No Physician Orders Drug Screen (12/30/24 02:24) Admit (12/30/24 02:41) Code Status (12/30/24 02:41) Ondansetron Hcl (Zofran) (12/30/24 02:45) Docusate Sodium Capsule (Colace Capsule) (12/30/24 02:45) Complete Blood Count (12/31/24 04:00) Comprehensive Metabolic Panel (12/31/24 04:00) Cardiac Diet-2gna,Lofat,Lochol (12/30/24 Breakfast) Condition: Unstable (12/30/24 02:41) Acetaminophen Tablet (Tylenol Tablet) (12/30/24 02:45) Sequential Compression Device (12/30/24 ) Vital Signs Date Time Temp Pulse Resp B/P (MAP) Pulse Ox O2 Delivery O2 Flow Rate FiO2 12/30/24 02:01 97.5 74 17 133/89 (104) 97 97.5 Medications Medications Dose Ordered Sig/Myke Route Start Time Stop Time Status Last Admin Dose Admin Ceftriaxone Sodium/Dextrose 50 ml @ 50 mls/hr ONCE ONCE IV 12/30/24 03:00 12/30/24 03:59 DC 12/30/24 03:00 50 MLS/HR Assessment/Plan Assessment/Plan Assessment 1. Left lower extremity cellulitis anterior lower leg, erythematous, tender. 2. Left forearm pain after fall rule out fracture/contusion. 3. Noncompliance with medications antibiotics, , 4. Type 2 diabetes mellitus with complication (infection). 5. Essential hypertension. 6. Hypothyroidism. 7. Hyperlipidemia. 8. Class III obesity (BMI 51.3). 9. Polysubstance use disorder (methamphetamine, THC, ethanol). 10. History of SHAKILA (prerenal, dehydration related, resolved) monitor renal function. 11. Constipation. 12. Vitamin D deficiency. Plan (Treatment by Problem) 1. Sepsis / GBS bacteremia & cellulitis * Admit to inpatient / telemetry for IV antibiotics and monitoring. * Start empiric broad-spectrum IV antibiotics: per previous cultures ceftr iaxone (adjust per cultures). * Blood cultures 2 before antibiotics. * CBC, CMP, CRP, ESR lactate. * Strict I&O, luis cellulitis borders. 2. Left forearm injury after fall * X-ray left forearm/wrist. * Immobilization/splint if fracture suspected. * Ortho consult if fracture/dislocation. 3. Diabetes mellitus (uncontrolled) * Resume basal/bolus insulin regimen with correction scale. * Fingerstick glucose q6h. * Hold SGLT2 inhibitor (Jardiance) during acute illness. 4. Hypertension * Resume losartan if renal function stable. * Monitor BP closely. 5. Hypothyroidism * Resume levothyroxine. 6. Hyperlipidemia * Resume statin once stabilized. 7. Obesity (BMI 51.3) * Nutrition consult. 8. Substance use disorder * Social work, psychiatry consult for relapse prevention, jail coordination. * Monitor for alcohol withdrawal symptoms. 9. SHAKILA (rule out recurrence) * BMP daily, monitor Cr. * IV fluids if hypovolemic; avoid nephrotoxins. 10. Constipation / vitamin D deficiency * Continue stool softeners/laxatives as needed. * Resume vitamin D supplementation. Prophylaxis * DVT prophylaxis: SCD * GI prophylaxis: Continue pantoprazole. * Infection control: Monitor wounds, wound care consult. Plan discussed with: Patient My Orders Orders - AZEB BOLAÑOS RESIDENT Procedure Category Date Status Time Admit ADMIT 12/30/24 Transmitted 02:41 Code Status CODE 12/30/24 Transmitted 02:41 Ondansetron Hcl PHA 12/30/24 In Process (Zofran) 02:45 Docusate Sodium PHA 12/30/24 In Process Capsule (Colace 02:45 Complete Blood Count LAB 12/31/24 Verified 04:00 Comprehensive LAB 12/31/24 Verified Metabolic Panel 04:00 Cardiac DIET 12/30/24 Transmitted Diet-2gna,Lofat,Lochol Breakfast Condition: Unstable JANEL 12/30/24 In Process 02:41 Acetaminophen Tablet PHA 12/30/24 In Process (Tylenol Tablet) 02:45 Sequential JANEL 12/30/24 In Process Compression Device Date of Service: Dec 30, 2024 Billing Provider: CHARAN CAREY MD Common Visit Codes: 27025-[id number] INP/OBS CARE (HIGH) AZEB BOLAÑOS RESIDENT Dec 30, 2024 06:15
[2024-12-30] MEDS ORDERED: DEXTROSE (50%) 50ML SYRG IV PRN (06:30)
[2024-12-30] MEDS: ACCU-CHEK COMFORT CURVE STRIP VI SCH (08:00)
[2024-12-30 09:00] VITALS: BP 149/80; PULSE 88; RESP 14; TEMP 98.3; O2SAT 94
[2024-12-30] MEDS: PANTOPRAZOLE 40 MG TAB PO SCH (09:08)
[2024-12-30] MEDS: LACTULOSE 20Gm/30ML SOLN PO SCH (09:08)
[2024-12-30] MEDS: InsuLIN REG 1unit/0.01ml Soln (100units/ml) SC SCH (09:15)
[2024-12-30] MEDS: ACETAMINOPHEN 325 MG TAB PO PRN (09:55)
[2024-12-30 12:49] VITALS: BP 126/71; PULSE 84; RESP 17; TEMP 97.9; O2SAT 93
--- NOTE | 2024-12-30 15:54 | DVHPN2 ---
Objective Vitals Vital Signs Date Time Temp Pulse Resp B/P (MAP) Pulse Ox O2 Delivery O2 Flow Rate FiO2 12/30/24 12:49 97.9 84 17 126/71 (89) 93 97.9 Intake/Output Intake and Output 12/30/24 07:00 Intake Total 100 ml Balance 100 ml Intake IV Total 100 ml Exam * General: Obese male, not in acute distress, afebrile on arrival. * Vitals: Pending full set. * Skin/Extremities: Left lower leg anterior aspect erythematous, tender, warm; above ankle joint extending midway to tibia. No fluctuance noted; borders not marked previously. * MSK: Left forearm with localized tenderness over lateral aspect radiating upward from wrist joint, no obvious deformity, ROM limited by pain. * Cardiac: Regular rate and rhythm, no murmurs. * Respiratory: Clear to auscultation bilaterally. * Abdomen: Obese, soft, nontender. * Neuro: No focal deficits. * Psych: Alert, cooperative. Medications Current Medications Medications Dose Ordered Sig/Myke Route Start Time Stop Time Status Last Admin Dose Admin Ondansetron HCl 4 mg Q4HP PRN IV 12/30/24 02:45 Docusate Sodium 100 mg BIDPRN PRN PO 12/30/24 02:45 Acetaminophen 650 mg Q6HP PRN PO 12/30/24 02:45 12/30/24 09:55 650 MG Ceftriaxone Sodium 50 ml @ 100 mls/hr DAILY@09 IV 12/31/24 09:00 Diagnostic Test (Pha) 1 strip IQ4HR 12/30/24 08:00 12/30/24 12:10 1 STRIP Insulin Human Regular IQ4HR SC 12/30/24 08:00 12/30/24 12:09 6 UNITS Dextrose 50 ml UD PRN IV 12/30/24 06:30 Pantoprazole Sodium 40 mg DAILY PO 12/30/24 10:00 12/30/24 09:08 40 MG Lactulose 15 ml DAILY PO 12/30/24 10:00 12/30/24 09:08 15 ML Laboratory Results Laboratory Tests 12/29/24 17:12 Chemistry Test 12/29/24 17:12 Albumin 4.1 g/dL (3.2-4.8) Calcium Level 8.9 mg/dL (8.7-10.4) Total Protein 7.9 g/dL (5.7-8.2) Cardiac Markers Test 12/29/24 17:12 B-Type Natriuretic Peptide 5.20 pg/mL (0-100) LFT Test 12/29/24 17:12 Alanine Aminotransferase (ALT) 55 U/L (7-40) H Alkaline Phosphatase 110 U/L (46-116) Aspartate Amino Transferase (AST) 66 U/L (13-40) H Total Bilirubin 0.5 mg/dL (0.2-1.0) Labs and/or images reviewed: Labs reviewed by me, Image(s) reviewed by me Assessment/Plan Assessment/Plan The patient is a 34-year-old male with known type 2 diabetes mellitus, essential hypertension, hypothyroidism, hyperlipidemia, morbid obesity (BMI 51.3), vitamin D deficiency, constipation, and polysubstance use disorder (methamphetamine, THC, alcohol), who presents from the emergency department for readmission due to recurrent left lower extremity cellulitis and bacteremia risk. He was hospitalized from December with sepsis secondary to left leg cellulitis and GBS bacteremia, treated with IV antibiotics and discharged on oral cefdinir 300 mg BID, vitamin D, and continuation of home medications. He was placed in a skilled nursing for supervision due to polysubstance use disorder. Since discharge, the patient has been noncompliant with antibiotics and all prescribed medications. He now presents with worsening erythema, swelling, and tenderness over the left anterior lower leg, specifically ABOVE the ankle joint and midway up the tibia. There is no panda drainage noted on arrival. He also reports left forearm pain localized to the lateral aspect, radiating slightly upward from the wrist joint, after a fall at the skilled nursing. He denies current fever, chills, chest pain, or shortness of breath, but reports generalized weakness. He had previously experienced decreased urine output during last admission attributed to dehydration; he denies oliguria currently, but labs are pending. Given his recent bacteremia, noncompliance, recurrent cellulitis, diabetes, and polysubstance history, he requires inpatient admission for IV antibiotics, diagnostic workup, and close monitoring. 12/30: Patient noncompliance left lower extremity cellulitis. Worsening infection needs ongoing treatment for cellulitis inpatient. Assessment 1. Left lower extremity cellulitis anterior lower leg, erythematous, tender. 2. Left forearm pain after fall rule out fracture/contusion. 3. Noncompliance with medications antibiotics, , 4. Type 2 diabetes mellitus with complication (infection).- SSI, hold orals. 5. Essential hypertension. 6. Hypothyroidism. 7. Hyperlipidemia. 8. Class III obesity (BMI 51.3). 9. Polysubstance use disorder (methamphetamine, THC, ethanol). 10. History of SHAKILA (prerenal, dehydration related, resolved) monitor renal function. 11. Constipation. 12. Vitamin D deficiency. Med surge Full code Plan discussed with: Patient Date of Service: Dec 30, 2024 Billing Provider: ANDRE PRITCHETT MD Common Visit Codes: [id number] INP/OBS CARE(HIGH) ANDRE PRITCHETT MD Dec 30, 2024 15:54
[2024-12-30 16:41] VITALS: BP 116/64; PULSE 72; RESP 17; TEMP 98; O2SAT 97
[2024-12-30 17:07] LABS: Base Excess 0.3 mmol/L (-2.0-3.0)
[2024-12-30 21:00] VITALS: BP 125/68; PULSE 79; RESP 18; TEMP 97.6; O2SAT 95
[2024-12-31 01:00] VITALS: BP 106/45; PULSE 72; RESP 18; TEMP 98.5; O2SAT 94
[2024-12-31 05:00] VITALS: BP 114/62; PULSE 65; RESP 18; TEMP 97.9; O2SAT 97
[2024-12-31 07:28] LABS: Alkaline Phosphatase 88 U/L (46-116); Anion Gap 11 (5-15); BUN/Creatinine Ratio 10.3 (10.0-20.0); Blood Urea Nitrogen 9 mg/dL (9-23); Calcium 8.9 mg/dL (8.7-10.4); Carbon Dioxide 25 mmol/L (20-31); Chloride 101 mmol/L (98-107); Potassium 3.9 mmol/L (3.5-5.1); Sodium 137 mmol/L (136-145)
[2024-12-31 07:29] LABS: Albumin 3.6 g/dL (3.2-4.8)
[2024-12-31 07:30] LABS: Alanine Aminotransferase 43 U/L (7-40); Bilirubin, Total 0.4 mg/dL (0.2-1.0); Glucose 167 mg/dL (74-106)
[2024-12-31 07:32] LABS: Total Protein 7.1 g/dL (5.7-8.2)
[2024-12-31 07:40] LABS: Hematocrit 40.1 % (41.0-53.0); Hemoglobin 13.3 g/dL (13.5-17.5); Mean Corpuscular Hemoglobin 28.9 pg (28.0-32.0); Mean Corpuscular Volume 86.7 fL (80.0-100.0); Nucleated Red Blood Cells % 0.4 %
[2024-12-31 08:00] VITALS: PULSE 85; RESP 18; O2SAT 92
[2024-12-31 09:10] VITALS: BP 106/66; PULSE 85; RESP 19; TEMP 97.7; O2SAT 92
--- NOTE | 2024-12-31 11:46 | DVHPN2 ---
Reviewed: H&P Changes from previous H/P or p: No Changes General: Per HPI Objective Vitals Vital Signs Date Time Temp Pulse Resp B/P (MAP) Pulse Ox O2 Delivery O2 Flow Rate FiO2 12/31/24 09:10 97.7 85 19 106/66 (79) 92 97.7 Exam * General: Obese male, not in acute distress, afebrile on arrival. * Vitals: Pending full set. * Skin/Extremities: Left lower leg anterior aspect erythematous, tender, warm; above ankle joint extending midway to tibia. No fluctuance noted; borders not marked previously. * MSK: Left forearm with localized tenderness over lateral aspect radiating upward from wrist joint, no obvious deformity, ROM limited by pain. * Cardiac: Regular rate and rhythm, no murmurs. * Respiratory: Clear to auscultation bilaterally. * Abdomen: Obese, soft, nontender. * Neuro: No focal deficits. * Psych: Alert, cooperative. Medications Current Medications Medications Dose Ordered Sig/Myke Route Start Time Stop Time Status Last Admin Dose Admin Ondansetron HCl 4 mg Q4HP PRN IV 12/30/24 02:45 Docusate Sodium 100 mg BIDPRN PRN PO 12/30/24 02:45 Acetaminophen 650 mg Q6HP PRN PO 12/30/24 02:45 12/31/24 01:19 650 MG Ceftriaxone Sodium 50 ml @ 100 mls/hr DAILY@09 IV 12/31/24 09:00 12/31/24 09:48 100 MLS/HR Diagnostic Test (Pha) 1 strip IQ4HR 12/30/24 08:00 12/31/24 08:24 1 STRIP Insulin Human Regular IQ4HR SC 12/30/24 08:00 12/31/24 09:50 4 UNITS Dextrose 50 ml UD PRN IV 12/30/24 06:30 Pantoprazole Sodium 40 mg DAILY PO 12/30/24 10:00 12/31/24 09:48 40 MG Lactulose 15 ml DAILY PO 12/30/24 10:00 12/31/24 09:48 15 ML Laboratory Results Laboratory Tests 12/31/24 06:32 Chemistry Test 12/31/24 06:32 Albumin 3.6 g/dL (3.2-4.8) Calcium Level 8.9 mg/dL (8.7-10.4) Total Protein 7.1 g/dL (5.7-8.2) LFT Test 12/31/24 06:32 Alanine Aminotransferase (ALT) 43 U/L (7-40) H Alkaline Phosphatase 88 U/L (46-116) Aspartate Amino Transferase (AST) 41 U/L (13-40) H Total Bilirubin 0.4 mg/dL (0.2-1.0) Blood Gas Results Test 12/30/24 17:02 Arterial Blood pH 7.397 (7.350-7.450) FiO2 % 21.0 Microbiology Microbiology Date/Time Source Procedure Growth Status 12/29/24 17:26 Blood Blood Culture - Preliminary NO GROWTH AFTER 24 HOURS OF INCUBATION. Resulted Labs and/or images reviewed: Labs reviewed by me, Image(s) reviewed by me Assessment/Plan Assessment/Plan The patient is a 34-year-old male with known type 2 diabetes mellitus, essential hypertension, hypothyroidism, hyperlipidemia, morbid obesity (BMI 51.3), vitamin D deficiency, constipation, and polysubstance use disorder (methamphetamine, THC, alcohol), who presents from the emergency department for readmission due to recurrent left lower extremity cellulitis and bacteremia risk. He was hospitalized from December with sepsis secondary to left leg cellulitis and GBS bacteremia, treated with IV antibiotics and discharged on oral cefdinir 300 mg BID, vitamin D, and continuation of home medications. He was placed in a [facility] for supervision due to polysubstance use disorder. Since discharge, the patient has been noncompliant with antibiotics and all prescribed medications. He now presents with worsening erythema, swelling, and tenderness over the left anterior lower leg, specifically ABOVE the ankle joint and midway up the tibia. There is no panda drainage noted on arrival. He also reports left forearm pain localized to the lateral aspect, radiating slightly upward from the wrist joint, after a fall at the [facility]. He denies current fever, chills, chest pain, or shortness of breath, but reports generalized weakness. He had previously experienced decreased urine output during last admission attributed to dehydration; he denies oliguria currently, but labs are pending. Given his recent bacteremia, noncompliance, recurrent cellulitis, diabetes, and polysubstance history, he requires inpatient admission for IV antibiotics, diagnostic workup, and close monitoring. 12/30: Patient noncompliance left lower extremity cellulitis. Worsening infection needs ongoing treatment for cellulitis inpatient. 12/31: Patient cellulitis improving still some erythema needs another day of IV antibiotics. Assessment 1. Left lower extremity cellulitis anterior lower leg, erythematous, tender. 2. Left forearm pain after fall rule out fracture/contusion. 3. Noncompliance with medications antibiotics, , 4. Type 2 diabetes mellitus with complication (infection).- SSI, hold orals. 5. Essential hypertension. 6. Hypothyroidism. 7. Hyperlipidemia. 8. Class III obesity (BMI 51.3). 9. Polysubstance use disorder (methamphetamine, THC, ethanol). 10. History of SHAKILA (prerenal, dehydration related, resolved) monitor renal function. 11. Constipation. 12. Vitamin D deficiency. Med surge Full code Plan discussed with: Patient, Other My Orders Orders - ANDRE PRITCHETT MD Procedure Category Date Status Time Abg W/ Co-Ox RT 12/30/24 Logged 16:50 Date of Service: Dec 31, 2024 Billing Provider: ANDRE PRITCHETT MD Common Visit Codes: [id number] INP/OBS CARE(HIGH) ANDRE PRITCHETT MD Dec 31, 2024 11:46
[2024-12-31 12:41] VITALS: BP 129/89; PULSE 77; RESP 16; TEMP 98.6; O2SAT 97
[2024-12-31 17:06] LABS: Amphetamine Screen, Urine Neg (NEGATIVE)
[2024-12-31 17:07] LABS: Barbiturate Scree,Urine Neg (NEGATIVE); Benzodiazephine Screen, Urine Neg (NEGATIVE); Cannabinoid Screen, Urine Neg (NEGATIVE); Cocaine Screen, Urine Neg (NEGATIVE); Opiate Scree,Urine Neg (NEGATIVE); Phencyclidine Screen, Urine Neg (NEGATIVE)
[2024-12-31 21:00] VITALS: BP 127/81; PULSE 84; RESP 16; TEMP 98.3; O2SAT 97
[2025-01-01] VITALS (7 sets, daily range): BP systolic 102–136; BP diastolic 63–89; PULSE 74–90; RESP 18–20; TEMP 97.6–98.9; O2SAT 94–96
--- NOTE | 2025-01-01 11:25 | DVHPN2 ---
Reviewed: H&P Changes from previous H/P or p: No Changes General: Per HPI Objective Vitals Vital Signs Date Time Temp Pulse Resp B/P (MAP) Pulse Ox O2 Delivery O2 Flow Rate FiO2 01/01/25 09:00 98.8 90 20 129/81 (97) 96 98.8 01/01/25 08:20 Room Air* 0 21 Intake/Output Intake and Output 01/01/25 07:00 Intake Total 50 ml Balance 50 ml Intake IV Total 50 ml Exam * General: Obese male, not in acute distress, afebrile on arrival. * Vitals: Pending full set. * Skin/Extremities: Left lower leg anterior aspect erythematous, tender, warm; above ankle joint extending midway to tibia. No fluctuance noted; borders not marked previously. * MSK: Left forearm with localized tenderness over lateral aspect radiating upward from wrist joint, no obvious deformity, ROM limited by pain. * Cardiac: Regular rate and rhythm, no murmurs. * Respiratory: Clear to auscultation bilaterally. * Abdomen: Obese, soft, nontender. * Neuro: No focal deficits. * Psych: Alert, cooperative. Medications Current Medications Medications Dose Ordered Sig/Myke Route Start Time Stop Time Status Last Admin Dose Admin Ondansetron HCl 4 mg Q4HP PRN IV 12/30/24 02:45 Docusate Sodium 100 mg BIDPRN PRN PO 12/30/24 02:45 Acetaminophen 650 mg Q6HP PRN PO 12/30/24 02:45 12/31/24 01:19 650 MG Ceftriaxone Sodium 50 ml @ 100 mls/hr DAILY@09 IV 12/31/24 09:00 12/31/24 09:48 100 MLS/HR Diagnostic Test (Pha) 1 strip IQ4HR 12/30/24 08:00 01/01/25 08:10 1 STRIP Insulin Human Regular IQ4HR SC 12/30/24 08:00 01/01/25 08:11 3 UNITS Dextrose 50 ml UD PRN IV 12/30/24 06:30 Pantoprazole Sodium 40 mg DAILY PO 12/30/24 10:00 01/01/25 10:00 40 MG Lactulose 15 ml DAILY PO 12/30/24 10:00 01/01/25 10:01 15 ML Laboratory Results Laboratory Tests 12/31/24 06:32 Microbiology Microbiology Date/Time Source Procedure Growth Status 12/30/24 06:29 Nose MRSA Screen - Final Complete 12/29/24 17:26 Blood Blood Culture - Preliminary NO GROWTH AFTER 48 HOURS OF INCUBATION. Resulted Labs and/or images reviewed: Labs reviewed by me, Image(s) reviewed by me Assessment/Plan Assessment/Plan The patient is a 34-year-old male with known type 2 diabetes mellitus, essential hypertension, hypothyroidism, hyperlipidemia, morbid obesity (BMI 51.3), vitamin D deficiency, constipation, and polysubstance use disorder (methamphetamine, THC, alcohol), who presents from the emergency department for readmission due to recurrent left lower extremity cellulitis and bacteremia risk. He was hospitalized from December with sepsis secondary to left leg cellulitis and GBS bacteremia, treated with IV antibiotics and discharged on oral cefdinir 300 mg BID, vitamin D, and continuation of home medications. He was placed in a halfway for supervision due to polysubstance use disorder. Since discharge, the patient has been noncompliant with antibiotics and all prescribed medications. He now presents with worsening erythema, swelling, and tenderness over the left anterior lower leg, specifically ABOVE the ankle joint and midway up the tibia. There is no panda drainage noted on arrival. He also reports left forearm pain localized to the lateral aspect, radiating slightly upward from the wrist joint, after a fall at the halfway. He denies current fever, chills, chest pain, or shortness of breath, but reports generalized weakness. He had previously experienced decreased urine output during last admission attributed to dehydration; he denies oliguria currently, but labs are pending. Given his recent bacteremia, noncompliance, recurrent cellulitis, diabetes, and polysubstance history, he requires inpatient admission for IV antibiotics, diagnostic workup, and close monitoring. 12/30: Patient noncompliance left lower extremity cellulitis. Worsening infection needs ongoing treatment for cellulitis inpatient. 12/31: Patient cellulitis improving still some erythema needs another day of IV antibiotics. 01/01: Swelling improving still some swelling left continue antibiotics for 1 more day. Assessment 1. Left lower extremity cellulitis anterior lower leg, erythematous, tender. 2. Left forearm pain after fall rule out fracture/contusion. 3. Noncompliance with medications antibiotics, , 4. Type 2 diabetes mellitus with complication (infection).- SSI, hold orals. 5. Essential hypertension. 6. Hypothyroidism. 7. Hyperlipidemia. 8. Class III obesity (BMI 51.3). 9. Polysubstance use disorder (methamphetamine, THC, ethanol). 10. History of SHAKILA (prerenal, dehydration related, resolved) monitor renal function. 11. Constipation. 12. Vitamin D deficiency. Med surge Full code Plan discussed with: Patient Date of Service: Jan 01, 2025 Billing Provider: ANDRE PRITCHETT MD Common Visit Codes: [id number] INP/OBS CARE(HIGH) ANDRE PRITCHETT MD Jan 01, 2025 11:25
[2025-01-02] VITALS (7 sets, daily range): BP systolic 116–140; BP diastolic 58–100; PULSE 65–84; RESP 18–19; TEMP 97–98.9; O2SAT 94–98
[2025-01-02] MEDS ORDERED: AUG875T PO (15:57)
--- NOTE | 2025-01-02 15:59 | DVHDS2 ---
Discharge Summary Date of Admission Dec 30, 2024 at 02:41 Date of Discharge: Jan 02, 2025 Labs/Diagnostic Data: Laboratory Results Test 01/02/25 12:25 12/31/24 06:32 12/30/24 17:02 12/30/24 07:20 POC Glucose 166 mg/dl (70-106) White Blood Count 5.3 10^3/uL (4.4-10.8) Red Blood Count 4.62 10^6/uL (4.5-5.90) Hemoglobin 13.3 g/dL (13.5-17.5) Hematocrit 40.1 % (41.0-53.0) Mean Corpuscular Volume 86.7 fL (80.0-100.0) Mean Corpuscular Hemoglobin 28.9 pg (28.0-32.0) Mean Corpuscular Hemoglobin Concent 33.3 g/dL (32.0-36.0) Red Cell Distribution Width 15.3 % (11.8-14.3) Platelet Count 276 10^3/uL (140-450) Mean Platelet Volume 9.7 fL (6.9-10.8) Neutrophils (%) (Auto) 58.2 % (37.0-80.0) Lymphocytes (%) (Auto) 32.5 % (10.0-50.0) Monocytes (%) (Auto) 5.4 % (0.0-12.0) Eosinophils (%) (Auto) 2.8 % (0.0-7.0) Basophils (%) (Auto) 1.1 % (0.0-2.0) Neutrophils # (Auto) 3.1 10 ^3/uL (1.6-8.6) Lymphocytes # (Auto) 1.7 10 ^3/uL (0.4-5.4) Monocytes # (Auto) 0.3 10 ^3/uL (0-1.3) Eosinophils # (Auto) 0.1 10 ^3/uL (0-0.8) Basophils # (Auto) 0.1 10 ^3/uL (0-0.2) Nucleated Red Blood Cells 0.4 % Sodium Level 137 mmol/L (136-145) Potassium Level 3.9 mmol/L (3.5-5.1) Chloride Level 101 mmol/L (98-107) Carbon Dioxide Level 25 mmol/L (20-31) Anion Gap 11 (5-15) Blood Urea Nitrogen 9 mg/dL (9-23) Creatinine 0.87 mg/dL (0.700-1.30) Glomerular Filtration Rate Calc 115 mL/min (>90) BUN/Creatinine Ratio 10.3 (10.0-20.0) Serum Glucose 167 mg/dL (74-106) Calcium Level 8.9 mg/dL (8.7-10.4) Total Bilirubin 0.4 mg/dL (0.2-1.0) Aspartate Amino Transferase (AST) 41 U/L (13-40) Alanine Aminotransferase (ALT) 43 U/L (7-40) Alkaline Phosphatase 88 U/L (46-116) Total Protein 7.1 g/dL (5.7-8.2) Albumin 3.6 g/dL (3.2-4.8) Blood Gas Specimen Type Arterial Blood Gas Sample Site Right radial Blood Gas Patient Temperature 37.0 Arterial Blood Date Drawn [id number] Arterial Blood pH 7.397 (7.350-7.450) Arterial Blood Partial Pressure CO2 42.0 mmHg (35.0-48.0) Arterial Blood Partial Pressure O2 56.2 mmHg (83.0-108.0) Arterial Blood HCO3 25.3 mmol/L (21.0-28.0) Arterial Blood Oxygen Saturation 87.8 % (94.0-98.0) Arterial Blood Base Excess 0.3 mmol/L (-2.0-3.0) Arterial Blood Oxyhemoglobin 86.6 % (94.0-98.0) Arterial Blood Carboxyhemoglobin 1.1 % (0.5-1.5) Arterial Blood Methemoglobin 0.3 % (0.0-1.5) Rick Test Yes Blood Gas Total Hemoglobin 13.30 g/dL (13.5-17.5) Blood Gas Modality Room air FiO2 % 21.0 Lactic Acid Level 1.3 mmol/L (0.4-2.0) Test 12/30/24 02:24 12/29/24 17:12 Urine Opiates Screen Neg (NEGATIVE) Urine Fentanyl Screen Neg (NEGATIVE) Urine Barbiturates Screen Neg (NEGATIVE) Urine Phencyclidine Screen Neg (NEGATIVE) Urine Amphetamines Screen Neg (NEGATIVE) Urine Benzodiazepines Screen Neg (NEGATIVE) Urine Cocaine Screen Neg (NEGATIVE) Urine Cannabinoids Screen Neg (NEGATIVE) Erythrocyte Sedimentation Rate 39 mm/hr (0-20) C-Reactive Protein High Sensitivity 4.66 mg/dL (<1.0) B-Type Natriuretic Peptide 5.20 pg/mL (0-100) Other Laboratory Tests 12/31/24 06:32 Brief Hx & Hospital Course: The patient is a 34-year-old male with known type 2 diabetes mellitus, essential hypertension, hypothyroidism, hyperlipidemia, morbid obesity (BMI 51.3), vitamin D deficiency, constipation, and polysubstance use disorder (methamphetamine, THC, alcohol), who presents from the emergency department for readmission due to recurrent left lower extremity cellulitis and bacteremia risk. He was hospitalized from December with sepsis secondary to left leg cellulitis and GBS bacteremia, treated with IV antibiotics and discharged on oral cefdinir 300 mg BID, vitamin D, and continuation of home medications. He was placed in a care home for supervision due to polysubstance use disorder. Since discharge, the patient has been noncompliant with antibiotics and all prescribed medications. He now presents with worsening erythema, swelling, and tenderness over the left anterior lower leg, specifically ABOVE the ankle joint and midway up the tibia. There is no panda drainage noted on arrival. He also reports left forearm pain localized to the lateral aspect, radiating slightly upward from the wrist joint, after a fall at the care home. He denies current fever, chills, chest pain, or shortness of breath, but reports generalized weakness. He had previously experienced decreased urine output during last admission attributed to dehydration; he denies oliguria currently, but labs are pending. Given his recent bacteremia, noncompliance, recurrent cellulitis, diabetes, and polysubstance history, he requires inpatient admission for IV antibiotics, diagnostic workup, and close monitoring. 12/30: Patient noncompliance left lower extremity cellulitis. Worsening infection needs ongoing treatment for cellulitis inpatient. 12/31: Patient cellulitis improving still some erythema needs another day of IV antibiotics. 01/01: Swelling improving still some swelling left continue antibiotics for 1 more day. 01/02: Patient continues to improve, stable for discharge today. Patient can continue Augmentin 875 for 5 days, take plain [place] yogurt tbsp full twice daily. Follow up with PCP. Assessment 1. Left lower extremity cellulitis 2. Left forearm pain after fall ruled out fracture 3. Noncompliance with medications 4. Type 2 diabetes mellitus with complication (infection) 5. Essential hypertension. 6. Hypothyroidism. 7. Hyperlipidemia. 8. Class III obesity (BMI 51.3). 9. Polysubstance use disorder (methamphetamine, THC, ethanol). 10. History of SHAKILA 11. Constipation. 12. Vitamin D deficiency. Plan: - Augmentin 875, twice daily for 5 days - take plain [place] yogurt tbsp full twice daily. - Follow up with PCP. Patient to discuss weight loss options with PCP. Condition at Discharge: Fair Final Diagnosis/Problems List 1. Left lower extremity cellulitis 2. Left forearm pain after fall ruled out fracture 3. Noncompliance with medications 4. Type 2 diabetes mellitus with complication (infection) 5. Essential hypertension. 6. Hypothyroidism. 7. Hyperlipidemia. 8. Class III obesity (BMI 51.3). 9. Polysubstance use disorder (methamphetamine, THC, ethanol). 10. History of SHAKILA 11. Constipation. 12. Vitamin D deficiency. Discharge Disposition: Home Discharge Instruct/Medications Scheduled Cefdinir (Cefdinir), 1 CAP PO BID Cholecalciferol (Vitamin D-[address]), 1,000 UNIT PO DAILY Insulin Glargine (Lantus), 15 UNITS SC HS Insulin Lispro (Human) (Humalog), 5 UNITS SC AC Lactulose (Lactulose), 15 ML PO DAILY Pantoprazole Sodium Sesquihydr (Pantoprazole Sodium), 40 MG PO DAILY Discharge Statement: "Patient was advised to return to the ER or call 911 if any headaches, dizziness, shortness of breath, chest pain, abdominal pain, bleeding, fevers, or worsening of medical condition. Patient was counseled about treatment plan, medications, possible side effects, patientverbalized understanding. All questions were answered to the best of my ability. This discharge took greater then 30 minutes in planning, reviewing documentation, counseling the patient, and discussing with other team members." ASSESSMENT ASSESSMENT Assessment Date of Service: Jan 02, 2025 Billing Provider: ANDRE PRITCHETT MD Common Visit Codes: [id number] DISCH DAY >30min ANDRE PRITCHETT MD Jan 02, 2025 15:59
== END 2025-01-02 18:13 | disposition home or self-care (01) | DRG 383 ==
LOC: ER 15:27 → OVERFLOW 12-30 02:41 → WEST WING 12-30 22:43
PROVIDERS: ADMIT Student in an Organized Health Care Education/Training Program; ATTEND Student in an Organized Health Care Education/Training Program
DX: L03.116 Cellulitis of left lower limb (principal); Z68.43 Body mass index [BMI] 50.0-59.9, adult; E66.813 Obesity, class 3; E03.9 Hypothyroidism, unspecified; I10 Essential (primary) hypertension; F15.10 Other stimulant abuse, uncomplicated; E11.69 Type 2 diabetes mellitus with other specified complication; E55.9 Vitamin D deficiency, unspecified; E78.5 Hyperlipidemia, unspecified; K59.00 Constipation, unspecified; Z91.148 Patient's other noncompliance with medication regimen for other reason; Z88.8 Allergy status to other drugs, medicaments and biological substances
CPT/HCPCS: 36415; 36600; 73110; 80053; 80307; 82805; 82962; 83605; 83880; 85025; 85652; 86141; 87040; 87081; 93971; G0378; J1815; J3490

== ENCOUNTER 2025-01-26 18:37 | Emergency (ER) | payer MEDICAID ==
[~2025-01-26] VITALS: Ht 170.2 cm; Wt 165.6 kg
[~2025-01-26 18:37] MED LIST changes: +AUG875T PO; -CEFD300C2 PO
--- NOTE | 2025-01-26 20:26 | ED.PDOC ---
Musculoskeletal HPI Comments 35-year-old male who presents to the ED for chief complaint of lower extremity pain. Patient states he has been having left lower extremity pain for the past one month intermittently. Patient states he was at the one month prior at [facility] for similar symptoms and states he received antibiotics and was discharged. Patient now in the ED states he has left leg redness and swelling. Patient otherwise denies chest pain shortness of breath or any associated symptoms. Chief Complaint: Lower Extremity Time Seen by MD: 20:24 Reviewed Notes: Nurses Notes, Medications, Allergies Allergies: Coded Allergies: Empagliflozin (Verified Allergy, Unknown, 12/18/24) Home Meds Active Scripts Amoxicillin & Pot Clavulanate (AUGMENTIN TABLET) 875 Mg Tb, 875 MG PO BID for 5 Days, #10 TAB 0 Refills Prov:ANDRE PRITCHETT MD 01/02/25 Pantoprazole Sodium Sesquihydr (Pantoprazole Sodium) 40 Mg Tab, 40 MG PO DAILY for 30 Days, #30 TAB Prov:HEATHER POWELL 12/23/24 Lactulose (Lactulose) 10 Gm/15 Ml Fabby, 15 ML PO DAILY for 30 Days, #30 ML Prov:HEATHER POWELL 12/23/24 Insulin Lispro (Human) (Humalog) 100 Unit/Ml Inj, 5 UNITS SC AC for 30 Days, #10 INJ Prov:HEATHER POWELL 12/23/24 Insulin Glargine (Lantus) 100 Unit/Ml Inj, 15 UNITS SC HS for 30 Days, #10 INJ Prov:HAETHER POWELL 12/23/24 Cholecalciferol (Vitamin D-[address]) 1,000 Unit Tab, 1000 UNIT PO DAILY for 30 Days, #30 TAB Prov:HEATHER POWELL 12/23/24 Information Source: Patient Mode of Arrival: Ambulatory Brought in by: Self Past Medical History PAST MEDICAL HISTORY: DM, HTN Surgical History: Denies all surgeries Family History Family History: Reviewed,noncontributory to illness, No family hx of Cancer, No family hx of DM, No family hx of Heart luis alberto, No family hx of HTN, No family hx ofKidney luis alberto, No family hx of Liver luis alberto, No family hx of Lung luis alberto, No family hx of Stroke Social History Smoker: Non-Smoker Alcohol: Heavy Drugs: Marijuana, Methamphetamine Lives In: Other Constitutional: denies: chills, diaphoresis, fatigue, fever, malaise, sweats, weakness, others EENTM: denies: blurred vision, double vision, ear bleeding, ear discharge, ear drainage, ear pain, ear ringing, eye pain, eye redness, hearing loss, mouth pain, mouth swelling, nasal discharge, nose bleeding, nose congestion, nose pain, photophobia, tearing, throat pain, throat swelling, voice changes, others Respiratory: denies: cough, hemoptysis, orthopnea, SOB at rest, shortness of breath, SOB with excertion, stridor, wheezing, others Cardiovascular: denies: chest pain, dizzy spells, diaphoresis, Dyspnea on exertion, edema, irregular heart beat, left arm pain, lightheadedness, palpitati ons, PND, syncope, others Gastrointestinal: denies: abdomen distended, abdominal pain, blood streaked bowels, constipated, diarrhea, dysphagia, difficulty swallowing, hematemesis, melena, nausea, poor appetite, poor fluid intake, rectal bleeding, rectal pain, vomiting, others Genitourinary: denies: burning, dysuria, flank pain, frequency, hematuria, incontinence, penile discharge, penile sore, pain, testicle pain, testicle swelling, urgency, others Neurological: denies: dizziness, fainting, headache, left sided numbness, left sided weakness, numbness, paresthesia, pre-existing deficit, right sided numbness, right sided weakness, seizure, speech problems, tingling, tremors, weakness, others Musculoskeletal: reports: joint swelling (Left lower extremity); denies: back pain, gout, joint pain, muscle pain, muscle stiffness, neck pain, others Integumetry: denies: bruises, change in color, change in hair/nails, dryness, laceration, lesions, lumps, rash, wounds, others Allergic/Immunocompromised: denies: Difficulty Healing, Frequent Infections, Hives, Itching, others Hematologic/Lymphatic: denies: anemia, blood clots, easy bleeding, easy bruising, swollen glands, others Endocrine: denies: excessive hunger, excessive sweating, excessive thirst, excessive urination, flushing, intolerance to cold, intolerance to heat, unexplained weight gain, unexplained weight loss, others Psychiatric: denies: anxiety, bipolar disorder, depression, hopeless, panic disorder, schizophrenia, sleepless, suicidal, others All Other Systems: Reviewed and Negative Physical Exam General Appearance: No Apparent Distress, Normal HEENT: Normal ENT Inspection, Pharynx Normal, TMs Normal Neck: Full Range of Motion, Non-Tender, Normal, Normal Inspection Respiratory: Chest Non-Tender, Lungs Clear, No Accessory Muscle Use, No Respiratory Distress, Normal Breath Sounds Cardiovascular: No Edema, No JVD, No Murmur, No Gallop, Normal Peripheral Pulses, Regular Rate/Rhythm Breast Exam: Deferred Gastrointestinal: No Organomegaly, Non Tender, No Pulsatile Mass, Normal Bowel Sounds, Soft Genitalia: Deferred Pelvic: Deferred Rectal: Deferred Extremities: No calf tenderness, Normal capillary refill, Normal inspection, Normal range of motion, Non-tender, No pedal edema Musculoskeletal : Apperance: Normal Neurologic: Alert, 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 Was a procedure done?: No Differential Diagnosis EXT Differential Diagnosis: Cellulitis, Deep Vein Thrombosis, Fracture, Sprain, Septic X-Ray, Labs, Meds, VS Vital Signs Date Time Temp Pulse Resp B/P (MAP) Pulse Ox O2 Delivery O2 Flow Rate FiO2 01/26/25 18:40 97.6 92 15 124/107 97 97.6 Time of 1ST Reevaluation: 21:00 Reevaluation 1ST: Unchanged Patient Education/Counseling: Diagnosis, Treatment Family Education/Counseling: No Family Present Departure 1 Departure Time of Disposition: 20:29 Impression: Primary Impression: Left leg cellulitis Disposition: 01 HOME / SELF CARE / HOMELESS Condition: Fair e-Prescriptions Docusate Sodium (Stool Softener) 100 Mg Cap 100 MG PO DAILY PRN, #60 CAP Prov: DALILA BECERRAP 01/26/25 Ibuprofen Micronized (Ibuprofen) 800 Mg Tab 800 MG PO TID PRN, #30 TAB Prov: DALILA BECERRA DERMATOLOGY PROCEDURAL PHYSICIAN 01/26/25 Sulfamethoxazole W/Trimethopri (Bactrim Ds Tablet) 1 Tab Tb 1 TAB PO BID for 10 Days, #20 TAB Prov: DALILA BECERRA 01/26/25 Discharged With: Self Critical Care Note Critical Care Time?: No Stability Stability form required: No Heart Score Heart Score: Heart Score Response (Comments) Value History N/A 0 EKG N/A 0 Age N/A 0 Risk Factors N/A 0 Troponin N/A 0 Total 0 I personally scribed for DALILA BECERRA (SIMRAN) on 01/26/25 at 20:26. Electronically submitted by Melissa PAN). DALILA BECERRA Jan 26, 2025 20:26
[2025-01-26] MEDS ORDERED: DOCU-80 PO (20:30)
[2025-01-26] MEDS ORDERED: BACDST PO (20:30)
[2025-01-26] MEDS ORDERED: IBUP-1455 PO (20:30)
[2025-01-26 20:49] VITALS: BP 126/102; PULSE 92; RESP 16; TEMP 97.6; O2SAT 98
== END 2025-01-26 20:52 | disposition home or self-care (01) ==
LOC: ER 18:37
DX: L03.116 Cellulitis of left lower limb (principal); I10 Essential (primary) hypertension; E11.9 Type 2 diabetes mellitus without complications; Z79.899 Other long term (current) drug therapy